=== PATIENT | female | born 1955 | race Caucasian/White ===

== ENCOUNTER → 2016-12-01 | Outpatient (CLI) | payer OTHER ==
[~2016-12-01] VITALS: Ht 157.5 cm; Wt 57.2 kg
[~2016-12-01] MED LIST: ABILIFY 2 MG2 MG PO; ABILIFY 5 MG TAB5 M1 PO; ABILIFY10 MG PO; ABILIFY15 MG PO; ACETAMINOPHEN325 M1 PO; ADVIL100 M2 PO; AMBIEN 10 MG TA10 MG PO; ASPIRIN EC81 M1 PO; ATIVAN0.5 MG PO; ATIVAN1 MG PO; ATORVASTATIN CA40 MG PO; AUGMENTIN 500-1 EACH PO; AUGMENTIN 875875 MG PO; AZITHROMYCIN 2250 MG PO; B-100 COMPLEX1 EAC1 PO; BACLOFEN 10MG T10 MG PO; BONIVA2.5 MG PO; CAL-LAC100 MG PO; CALCIUM 500 +1 EAC5 PO; CATAPRES-TTS 10.1 MG TD; CEFTIN 250 MG250 MG PO; CITRACEL; CITRATE OF MAG296 ML PO; COLACE100 MG PO; CORTISONE99 GM TP; CYMBALTA PO; CYMBALTA30 MG PO; DESYREL100 MG PO; DESYREL50 MG PO; DILAUDID; DILAUDID 2 MG TA2 MG PO; DILAUDID 4 MG TA4 M1 PO; DILAUDID 4 MG TA4 MG PO; DILAUDID4 MG PO; DOXYCYCLINE 10100 MG PO; DUONEB 2.5-0.5 M3 ML INH; EFFIENT10 MG PO; FAMOTIDINE20 MG PO; FISH OIL 1,0001 EAC9 PO; FLONASE 0.05%50 MCG NASAL; FLOVENT HFA 1110 MCG INH; GLYCOLAX POWDER17 G1 PO; HONEY PO; IBUPROFEN 200200 M1 PO; IBUPROFEN 600600 M1 PO; IMDUR 30 MG TAB30 M1 PO; INTRATHECAL MED; K-DUR10 MEQ PO; KEFLEX250 MG PO; KLOR-CON 1010 MEQ PO; LASIX 40 MG TAB40 M2 PO; LEVAQUIN 500 M500 M2 PO; LEVAQUIN 500 M500 M3 PO; LEVAQUIN 500 M500 MG PO; LEVAQUIN 750 M750 MG PO; LEVOFLOXACIN750 MG PO; LEVOTHROID150 MC1 PO; LEVOTHYROXIN0.025 M1 PO; LEVOTHYROXIN0.125 M1 PO; LEXAPRO 10 MG T10 M1 PO; LEXAPRO 10 MG T10 MG PO; LEXAPRO20 MG PO; LIDOCAINE 2%2 %/5 GM MM; LIORESAL 10 MG10 MG PO; LIPITOR40 MG PO; LORAZEPAM 0.50.5 MG PO; LORAZEPAM 1 MG T1 M1 PO; LUNESTA3 MG PO; LYRICA 50 MG50 MG PO; LYRICA 75 MG CA75 MG PO; LYRICA100 MG PO; METOPROLOL SUCC25 M1 PO; MIRALAX17 GM PO; MOBIC7.5 MG PO; MUCINEX TA600 MG/TA1 PO; MUCINEX600 MG PO; MUCUS RELIEF600 MG PO; MULTIVITAMINS PO; MULTIVITAMINS1 EAC7 PO; NAMENDA 5 MG TAB5 M1 PO; NASACORT AQ16.5 GM NASAL; NASACORT10.8 ML NASAL; NICOTINE TRANSDE7 MG TD; NITROGLYCERIN0.4 MG SUBLING; NITROQUICK0.4 MG SL; NORVASC 2.5 MG2.5 M1 PO; OSTEOBIFLEX PO; PAIN PUMP INTRATHECA; PAMELOR10 MG PO; POTASSIUM CHLO10 MEQ PO; POTASSIUM CHLORIDE PO; PREDNISONE 10 M10 M1 PO; PREDNISONE 10 M10 MG PO; PREDNISONE 20 M20 MG PO; PREDNISONE 5 MG5 M1 PO; PREDNISONE50 MG PO; PREMARIN0.3 MG PO; PROVENTIL IN; RECLAST 55 MG/100 M IV; RESTORIL15 MG PO; ROBITUSSIN15 MG/5 M1 PO; SENOKOT-S1 TA1 GT; SENOKOT-S1 TA1 PO; SIMVASTATIN20 MG PO; SIMVASTATIN40 MG PO; SONATA10 MG PO; SONATA5 M1 PO; SONATA5 MG PO; SYNTHROID125 MCG PO; SYNTHROID150 MCG PO; TEGRETOL XR100 MG PO; TESSALON PERLE100 M1 PO; TESSALON PERLE100 MG PO; TOPROL XL25 MG PO; TOPROL XL50 MG PO; TRILEPTAL150 MG PO; TYLENOL EXTRA500 MG PO; VENTOLIN HFA 1818 GM INH; VOLTAREN GEL 1100 G1 TOP; VOLTAREN GEL 1100 G2 TOP; WELLBUTRIN XL150 M1 PO; XOPENEX HF1 UDINHALE IH; XOPENEX HFA15 GM IH; XOPENEX HFA15 GM INH; ZANAFLEX4 MG PO; ZOCOR20 MG PO; ZPAK PO; hydromorphone; hydromorphone INTRATHECA
--- NOTE | ~2016-12-01 | HPC ---
[facility] [address] [address] PAIN MANAGEMENT CONSULTATION Name: ZEYNEP VELASCO KRISTINA Room #: REG Seth Whyte.#: [id number] Admission: 12/01/16 Attend Phys: Tony Huang DO Discharge: Date of : 59 Report #: [id number] THIS REPORT FOR: //name// CC: Jarad Huang PROCEDURE: Right L3-L4 transforaminal epidural injection under fluoroscopy. INDICATIONS: Symptomatic lumbar radiculopathy, status post decompressive laminectomy. The patient has chronic pain syndrome, requiring complex medication management. She has an intrathecal pump in place. She has significant thoracolumbar scoliosis. She had a right L3-L4 transforaminal epidural injection in May, with a greater than 60% improvement of baseline pain for quite some time. She has ongoing issues with the back, I think scoliosis may be getting worse. She was seen in the back surgery department at . She has a CT myelogram pending. She presents to the pain clinic today for prior transforaminal epidural injection under fluoroscopy. ASSESSMENT: Symptomatic lumbar radiculopathy, status post decompressive laminectomy. The patient with subjective pain score of 6/10. PROCEDURE: Transforaminal lumbar epidural injection under fluoroscopy. PROCEDURE NOTE: After both written and informed consent was obtained including risk of spinal cord damage, infection, increased pain and paralysis, the patient agreed to proceed. The patient was taken to the fluoroscopy suite, placed in a prone position with appropriate abdominal bolstering. After sterile prep with ChloraPrep and sterile drape, a skin wheal with 1% Xylocaine was raised. A 22 gauge 4-1/2 inch epidural Tuohy needle was inserted. From an oblique approach into the posterior-superior aspect of L3-L4 on the right neural foramen with continuous pressure on the glass syringe plunger for loss of resistance. Glass syringe was filled with 2 mL of 0.1 Xylocaine. The glass loss of resistance syringe was removed. A low volume extension tubing was connected, negative aspiration was accomplished for cerebrospinal fluid or blood. 1 mL of Omnipaque was injected which showed spread both within the epidural space and laterally along the nerve root. This was followed with 80 mg of triamcinolone plus 1 mL of 1.5% preservative-free Xylocaine. Needle was partially withdrawn, 0.5 mL of Xylocaine was injected to clear the needle and the needle was removed. The area was cleansed, band-aid was applied. The patient was allowed to ambulate to the recovery room, discharged in good and stable condition. <ELECTRONICALLY SIGNED> By: Tony Huang DO 12/03/16 0824 [id number] [id number] Tony Huang DO /nt
[2016-12-01 12:55] VITALS: BP 115/60
== END | disposition home or self-care (01) ==
LOC: PAIN 07:25
DX: G89.4 Chronic pain syndrome (principal); M54.16 Radiculopathy, lumbar region; F17.200 Nicotine dependence, unspecified, uncomplicated; Z98.890 Other specified postprocedural states

== ENCOUNTER → 2017-03-27 | Outpatient (CLI) | payer OTHER ==
[~2017-03-27] VITALS: Ht 157.5 cm; Wt 55.8 kg
--- NOTE | ~2017-03-27 | HPC ---
[facility] [place] [address] PAIN MANAGEMENT CONSULTATION Name: ZEYNEP VELASCO Room #: REG LUIS Buitrago#: [id number] Admission: 03/27/17 Attend Phys: Tony Huang DO Discharge: Date of : 59 Report #: [id number] THIS REPORT FOR: //name// CC: Jarad Huang The patient is a very pleasant 61-year-old female, long known to the pain clinic, being treated for lumbar radiculopathy status post decompressive laminectomy, neuropathic pain requiring complex medication management. Last seen in the pain clinic 01/16/2017 for intrathecal pump refill. She was having increasing lumbar radicular pain following an aborted CT myelogram at [facility]. I had given her an epidural injection 11/21/2016 for right lumbar radicular symptoms (transforaminal L3-L4) with good efficacy. In the interval between November and January when we saw her, she had the aforementioned aborted EMG. When I saw her last visit, we refilled the ITP and I had ordered a CT myelogram here at [facility]. The patient returns to pain clinic today. She notes that after 7 long weeks, finally the left L4 radicular pain is starting to improve. She was very nervous about repeating the CT myelogram even in different hands. I told I certainly understood her anxiety and given the fact the symptoms are improving, we will simply assume that it was irritation of that nerve root from the irritation of the spinal needle for the attempted CT myelogram and it seems to be resolving. She notes her usual right lumbar radicular pain remains problematic. She notes the intrathecal pump is helpful. Unfortunately, she fell recently suffered trauma to outstretched left wrist. She has pain at the base of the hand on the radial aspect, pain with pressure in the "anatomical snuff box." Given that it has been about 3 weeks now, concerned that this may be a bone bruise or possibly fracture here. We will order x-rays of the left hand/wrist. Otherwise, physical exam is relatively unchanged. The patient is concerned that the new intrathecal pump is actually fairly lose in the pocket and it does move around a fair bit. It is pretty clearly not anchored. I am concerned that she has lost a fair bit of weight. She has some very lax skin over the abdominal wall. I cautioned her about activities that might cause the pump to "flip." This would both make accessing the pump problematic and could cause damage to the intrathecal catheter lead. Today, I have taken the liberty of renewing the patient's breakthrough pain medication, hydromorphone 4 mg 1 tablet up to 4 times a day, limit 120 tablets. I have renewed Lyrica 100 mg 3 times a day, 90 tablets with 2 refills, baclofen 10 mg q. 8 hours, 90 tablets with 2 refills and Voltaren gel topically. Intrathecal pump was addressed, I refilled the pump today with her baseline infusate which contains bupivacaine 20 mg per mL, hydromorphone 20 mg per mL. No changes to the infusate were made. [address] [address] PAIN MANAGEMENT CONSULTATION Name: ZEYNEP VELASCO KRISTINA Room #: REG CLSeth Buitrago#: [id number] Admission: 03/27/17 Attend Phys: Tony Huang, Discharge: Date of : 59 Report #: [id number] PROCEDURE: After written informed consent was obtained, the patient placed in supine position. Skin overlying the pump was cleansed with ChloraPrep. Skin wheal with Xylocaine was raised. Using the [employer] refill kit, the pump was accessed, aspirated residual contents (approximately 3 mL) refilled with 20 mL of new injectate. Frequent aspiration showed easy return of the injectate. When all 20 mL were injected, the needle was removed. The area was cleansed, Band-Aids applied. The pump was reprogrammed to deliver baseline 4.796 mg of hydromorphone and bupivacaine a day. New refill date is 06/10/2017. SHON is 66 months. Discharged in good and stable condition. <ELECTRONICALLY SIGNED> By: Tony Huang DO 04/01/17 0758 1624 0240 Tony Huang DO /nt
[2017-03-27 12:42] VITALS: BP 114/64
== END ==
LOC: PAIN 07:07
DX: M54.16 Radiculopathy, lumbar region (principal); I10 Essential (primary) hypertension; F17.210 Nicotine dependence, cigarettes, uncomplicated

== ENCOUNTER → 2017-06-08 | Outpatient (CLI) | payer OTHER ==
[~2017-06-08] VITALS: Ht 157.5 cm; Wt 56.4 kg
--- NOTE | ~2017-06-08 | HPC ---
[facility] [address] [place] [address] PAIN MANAGEMENT CONSULTATION Name: GIANKAYLENZEYNEP KRISTINA Room #: REG Seth Whyte.#: [id number] Admission: 06/08/17 Attend Phys: Tony Huang DO Discharge: Date of : 59 Report #: [id number] THIS REPORT FOR: //name// CC: Jarad Huang The patient is a very pleasant 61-year-old female, who I have long treated for chronic pain, back and legs. Status post lumbar decompressive laminectomy fusion. Significant thoracolumbar spondylosis and scoliosis, neuropathic pain requiring complex medication management and intrathecal pump management. She returns to pain clinic today. Ostensibly for intrathecal pump refill, which was accomplished today. She is also noting increasing pain and weakness in the right leg. Unfortunately, weakness is increasing to the point that she is getting a little loss of dorsiflexion starting to trip on her right foot. Physical exam today shows fairly significant thoracolumbar scoliosis, markedly antalgic gait with what appears to be increasing weakness in that right leg to dorsiflexion, hip flexion and lower extremity extension. Modestly positive straight leg raise on the right. Diffuse tenderness across the low back. The patient has a pacemaker and hence cannot get an MRI. She notes that prior epidural injection, right transforaminal injection back in November did afford some relief. She is now interested and perhaps moving forward with the surgical intervention if she does have surgically correctable pathology. We had a prolonged visit today discussing concerns regarding further surgery. She has had multiple surgeries. She has dramatic scoliosis. She already has had multiple back surgeries with instrumentation. She has osteoporosis by history. She continues to smoke. She really has not had an excellent surgical candidate; however, given the concern for weakness in that right leg, I have elected to at least order a CT myelogram of the lumbar spine. We will have the patient follow up with Dr. Muñoz. I would like to get his opinion regarding therapeutic surgical options. I did renew the patient's chronic pain medication, she does take p.r.n. hydromorphone 4 mg up to four times a day, prescription for 120 tablets generated, continue Lyrica 100 mg t.i.d., 90 tablets with 2 refills, baclofen 10 mg q.8h. for spasm, 90 tablets with 2 refills and Voltaren Gel to use topically. We reviewed the fact that opiate medications are being used to provide analgesia adequate to support activities of daily living, not attempting to achieve a specific pain score on the 0-10 Visual Analog Scale. The current opiate medications are providing sufficient analgesia to allow the patient to participate in activities of daily living. The patient is not exhibiting any aberrant behavior suggestive of drug diversion. The patient is not having any adverse reactions to medications. The patient is not suffering from daytime [address] [address] PAIN MANAGEMENT CONSULTATION Name: ZEYNEP VELASCO KRISTINA Room #: REG CL Iftikhar#: [id number] Admission: 06/08/17 Attend Phys: Tony Huang DO Discharge: Date of : 59 Report #: [id number] somnolence or mental acuity changes. The patient is managing opiate-induced constipation with appropriate ynau-rah-pwbwkbd agents and dietary considerations. The patient was counseled on concern for caution with operating a motor vehicle while using opiate medications. A physical exam was performed and the patient's functional status was evaluated. All patients with back pain were advised against the bed rest greater than 4 days and were advised to return to normal activities. Pain score assessment was noted and the treatment plan was reviewed with the patient. All current medications, both prescribed and OTC were reviewed and reconciled on the electronic medical record. Tobacco screening was accomplished and smoking cessation was advised when indicated. BMI was noted and diet/exercise modification was recommended for all patients following outside normal parameters. I reviewed with the patient today their responsibilities to safeguard prescription medications, reviewed their responsibility to utilize medications only as prescribed by the physician. They are to seek and receive pain medications only from 1 physician group ( [facility]). They are to use 1 pharmacy and keep the clinic informed if they change pharmacies. Their responsibilities include making followup visits in a timely fashion and to avoid abrupt discontinuation of medication usage. Their responsibilities further include bringing their medications (bottles from the pharmacy with residual pills) to the visit for possible confirmation of pill counts and the patient understands it is their responsibility to submit to random drug screens to ensure both that the medications prescribed are present, and that no other controlled substances are present. All prescriptions provided today were generated electronically. Intrathecal pump management, intrathecal pump refill. PROCEDURE NOTE: After written informed consent was obtained, the patient was placed in supine position. Skin overlying the pump was cleansed with ChloraPrep. Skin wheal with Xylocaine was raised. Using a [employer] refill kit, the pump was accessed, aspirated residual contents and refilled with 20 mL of the new injectate containing hydromorphone 20 mg per mL and bupivacaine 20 mg per mL. Dose was continued at 4.796 mg per day of each substance. New refill date is now 08/22/2017. After installation of the new injectate with frequent aspiration showing easy return of the injectate, needle was removed, the area was cleansed, and Band-Aids applied. Pump was reprogrammed. Discharged in good and stable condition. Order for a CT myelogram lumbar spine was generated. By: [id number] Tony Huang DO /nt
[2017-06-08 12:39] VITALS: BP 110/68
== END | disposition home or self-care (01) ==
LOC: PAIN 06:51
DX: Z45.1 Encounter for adjustment and management of infusion pump (principal); M41.85 Other forms of scoliosis, thoracolumbar region; G62.9 Polyneuropathy, unspecified; M47.895 Other spondylosis, thoracolumbar region

== ENCOUNTER → 2017-08-20 | Outpatient (CLI) | payer OTHER ==
[~2017-08-20] VITALS: Ht 157.5 cm; Wt 55.8 kg
--- NOTE | ~2017-08-20 | HPC ---
[facility] [address] [place] [address] PAIN MANAGEMENT CONSULTATION Name: KRISTAZEYNEP KRISTINA Room #: REG Seth Buitrago#: [id number] Admission: 08/20/17 Attend Phys: Tony Huang DO Discharge: Date of : 59 Report #: [id number] THIS REPORT FOR: //name// CC: Jarad Huang DATE OF SERVICE: 08/20/2017 The patient is a very pleasant 61-year-old female along the pain clinic, being treated for significant thoracolumbar scoliosis and spondylosis status post decompressive laminectomy, chronic pain syndrome requiring high risk complex medication management and intrathecal pump management. She returns to pain clinic today ostensibly for intrathecal pump refill. She also was complaining of a new complaint that being right shoulder pain. Last visit, we talked about getting an MRI of the lumbar spine, though patient prudently points out that she is not desirous of further surgery. She understands that any surgery require instrumentation and she would prefer to try and avoid that if possible. She notes that pain in her right hip and leg remains problematic, but she feels that she is reasonably functional. She uses a cane in her right hand, which she has for years. She does, however, note that for the past couple of months she had increasing pain in the right shoulder, exacerbated with any and all movement. She has struggled some with opiate-induced constipation, she follows up with her GI physician. Tragically, they suggested Movantik, which was not covered by insurance. They suggested Linzess which was not covered by insurance. She is still working with her gastrointestinal doc to help ameliorate these symptoms. The positive note is that she is taking less of her p.r.n. breakthrough medication (hydromorphone 4 mg). I had given her last prescription for 120 tablets on 06/08/2017. She still has a few tablets left we did renew a prescription today. She is using Voltaren gel topically on her knees and started recently on the right shoulder. She notes pain is 6.5 on the VAS. Again, pain in the low back, right hip and now right shoulder. PHYSICAL EXAMINATION: Shows pleasant 61-year-old female, BMI is 22.5 kilograms per meter squared. Remarkable thoracolumbar scoliosis antalgic gait. Vital signs are stable. Right shoulder still has pain with both passive and active range of motion, slight diminished in strength the deltoid and biceps strength. I did take the liberty of ordering x-rays of the right shoulder today, reviewing this notes degenerative changes at right AC joint. [address] [address] PAIN MANAGEMENT CONSULTATION Name: ZEYNEP VELASCO KRISTINA Room #: REG CLSeth Buitrago#: [id number] Admission: 08/20/17 Attend Phys: Tony Huang DO Discharge: Date of : 59 Report #: [id number] ASSESSMENT: Symptomatic right shoulder degenerative joint disease. RECOMMENDATION: 1. We will seek authorization for shoulder injection under fluoroscopy. Continue tramadol p.r.n. 2. Intrathecal pump refill on chronic pain syndrome. 3. Pump refilled today and I increased to 5%, from 4.796 mg of hydromorphone a day to 5.022 mg of hydromorphone a day (with concurrent increase in bupivacaine 4.796 to 5.022 mg a day). PROCEDURE NOTE: Intrathecal pump refill. PROCEDURE: After written informed consent was obtained, the patient placed in supine position. Skin overlying the pump was cleansed with ChloraPrep. Skin wheal with Xylocaine was raised. The pump was accessed using the [employer] refill kit, aspirated of approximately 2.5 mL of injectate. Refilled with 20 mL of new injectate, hydromorphone 20 mg per mL, bupivacaine 20 mg per mL. Again, I did increase the pump 5%. New alarm date is now 10/30/2017. We will plan on seeing patient next week for right shoulder arthrogram and shoulder steroid injection. The patient has ongoing pain in the right shoulder. X-rays show arthritic changes, topical nonsteroidal anti-inflammatory medications not affording adequate relief, she is intolerant of nonsteroidal anti-inflammatory agents. <ELECTRONICALLY SIGNED> By: Tony Huang DO 08/21/17 0657 1545 2154 Tony Huang DO /nt
[2017-08-20 12:35] VITALS: BP 118/73
== END | disposition home or self-care (01) ==
LOC: PAIN 07:06
DX: Z45.1 Encounter for adjustment and management of infusion pump (principal); G89.4 Chronic pain syndrome; M19.011 Primary osteoarthritis, right shoulder; J44.1 Chronic obstructive pulmonary disease with (acute) exacerbation; F41.8 Other specified anxiety disorders; F17.200 Nicotine dependence, unspecified, uncomplicated; Z79.891 Long term (current) use of opiate analgesic; Z98.890 Other specified postprocedural states; Z88.0 Allergy status to penicillin; Z88.6 Allergy status to analgesic agent; Z88.8 Allergy status to other drugs, medicaments and biological substances

== ENCOUNTER → 2017-08-31 | Outpatient (CLI) | payer OTHER ==
[~2017-08-31] VITALS: Ht 160 cm; Wt 56.2 kg
--- NOTE | ~2017-08-31 | HPC ---
[address] [place] [address] PAIN MANAGEMENT CONSULTATION Name: ZEYNEP VELASCO KRISTINA Room #: REG [facility] MMahi.#: [id number] Admission: 08/31/17 Attend Phys: Tony Huang DO Discharge: Date of : 59 Report #: [id number] THIS REPORT FOR: //name// CC: Jarad Huang PROCEDURE: Right shoulder joint injection under fluoroscopy. INDICATION: Symptomatic right shoulder DJD. X-ray shows moderate DJD here. She was seen in the pain clinic on 08/20/2017, who sought authorization for injection. The patient returns to pain clinic noting pain continues to be problematic in that right shoulder, exacerbated with any motion at all. ASSESSMENT: Symptomatic degenerative joint disease, right shoulder. The patient multiple comorbidities including status post lumbar decompressive laminectomy, thoracolumbar scoliosis and spondylosis, chronic pain syndrome requiring intrathecal pump management and complex medication management. PROCEDURE NOTE: Right shoulder joint injection under fluoroscopy. Fluoroscopy time is under 10 seconds. PROCEDURE: After written informed consent was obtained, the patient was taken to the fluoroscopy suite, placed in the supine position. Skin overlying the right shoulder was cleansed with ChloraPrep. Skin wheal with Xylocaine was raised. A 22-gauge stylet needles were placed to contact the proximal expect of the right humerus at the right glenohumeral joint. Negative aspiration was accomplished. A 1 mL of Omnipaque was injected, which showed spread within the joints followed with 40 mg triamcinolone plus 2 mL of 0.5% preservative-free bupivacaine. Needle was removed. The area was cleansed and Band-Aids applied. The patient monitored for an appropriate period of time, discharged in good and stable condition, noting incremental improvement of baseline pain. <ELECTRONICALLY SIGNED> By: Tony Huang DO 09/02/17 0802 1553 2111 Tony Huang DO /nt
[2017-08-31 13:29] VITALS: BP 119/84
== END | disposition home or self-care (01) ==
LOC: PAIN 08-28 07:19
DX: M19.011 Primary osteoarthritis, right shoulder (principal); M41.85 Other forms of scoliosis, thoracolumbar region; M47.895 Other spondylosis, thoracolumbar region; G89.4 Chronic pain syndrome; F17.210 Nicotine dependence, cigarettes, uncomplicated; Z88.0 Allergy status to penicillin; Z98.890 Other specified postprocedural states; Z79.891 Long term (current) use of opiate analgesic; Z88.6 Allergy status to analgesic agent; Z88.5 Allergy status to narcotic agent; Z88.8 Allergy status to other drugs, medicaments and biological substances

== ENCOUNTER → 2017-10-29 | Outpatient (CLI) | payer OTHER ==
[~2017-10-29] VITALS: Ht 157.5 cm; Wt 56.2 kg
--- NOTE | ~2017-10-29 | HPC ---
[facility] [place] [address] [address] [place] [address] PAIN MANAGEMENT CONSULTATION Name: KRISTAZEYNEP KRISTINA Room #: REG Seth MMahi.#: [id number] Admission: 10/29/17 Attend Phys: Tony Huang DO Discharge: Date of : 59 Report #: [id number] THIS REPORT FOR: //name// CC: Jarad Huang The patient is a very pleasant 61-year-old female, she has significant thoracolumbar scoliosis, spondylosis, status post lumbar decompressive laminectomy, requiring high risk complex medication management, neuropathic pain component. She has an intrathecal pump in place, in fact presents to pain clinic today for intrathecal pump refill. We had prior increased 5% in August. I did a right shoulder joint injection under fluoroscopy 08/31/2017. I am pleased to note that the patient reports dramatic improvement, in fact still ongoing improvement of right shoulder pain and range of motion. She does take an appropriate p.r.n. opiate, Dilaudid 4 mg up to 4 times a day. Last prescription 08/20/2017, lasted about 7 weeks. She uses Lyrica 100 mg t.i.d. and Voltaren gel topically. PHYSICAL EXAMINATION: Today is unchanged, pleasant 61-year-old female. Again marked thoracolumbar scoliosis. Her right shoulder pain is better. Vital signs are stable. We reviewed the fact that opiate medications are being used to provide analgesia adequate to support activities of daily living, not attempting to achieve a specific pain score on the 0-10 Visual Analog Scale. The current opiate medications are providing sufficient analgesia to allow the patient to participate in activities of daily living. The patient is not exhibiting any aberrant behavior suggestive of drug diversion. The patient is not having any adverse reactions to medications. The patient is not suffering from daytime somnolence or mental acuity changes. The patient is managing opiate-induced constipation with appropriate tnqb-vrb-epksufr agents and dietary considerations. The patient was counseled on concern for caution with operating a motor vehicle while using opiate medications. A physical exam was performed and the patient's functional status was evaluated. All patients with back pain were advised against the bed rest greater than 4 days and were advised to return to normal activities. Pain score assessment was noted and the treatment plan was reviewed with the patient. All current medications, both prescribed and OTC were reviewed and reconciled on the electronic medical record. Tobacco screening was accomplished and smoking cessation was advised when indicated. BMI was noted and diet/exercise modification was recommended for all patients following outside normal parameters. I reviewed with the patient today their responsibilities to safeguard prescription medications, reviewed their responsibility to utilize medications only as prescribed by the physician. They are to seek and receive pain [address] [address] PAIN MANAGEMENT CONSULTATION Name: KRISTAZEYNEP KRISTINA Room #: REG CLSeth Buitrago#: [id number] Admission: 10/29/17 Attend Phys: Tony Huang DO Discharge: Date of : 59 Report #: [id number] medications only from 1 physician group ( [facility]). They are to use 1 pharmacy and keep the clinic informed if they change pharmacies. Their responsibilities include making followup visits in a timely fashion and to avoid abrupt discontinuation of medication usage. Their responsibilities further include bringing their medications (bottles from the pharmacy with residual pills) to the visit for possible confirmation of pill counts and the patient understands it is their responsibility to submit to random drug screens to ensure both that the medications prescribed are present, and that no other controlled substances are present. All prescriptions provided today were generated electronically. RECOMMENDATIONS: 1. Renew hydromorphone 4 mg up to 4 tablets a day, 120 tablets, this typically last about 6-7 weeks. 2. Continue Lyrica and Voltaren gel, prescriptions renewed. 3. Intrathecal pump refill. PROCEDURE NOTE: After written informed consent was obtained, the patient was placed in supine position. Skin overlying the pump was cleansed with ChloraPrep. Skin wheal with Xylocaine was raised. Using a [employer] refill kit, the pump was accessed, aspirated residual contents (approximately 5 mL). Refilled with new injectate containing hydromorphone 20 mg per mL and bupivacaine 20 mg per mL. Frequent aspiration showed easy return of the injectate. Pump was reprogrammed to deliver ongoing rate of 5.022 mg of both hydromorphone and bupivacaine a day in a simple continuous fashion. The SHON is 59 months. New refill date is 01/08/2018. Needle was removed. The area was cleansed, Band-Aids applied. The patient was monitored for an appropriate period of time, discharged in good and stable condition. <ELECTRONICALLY SIGNED> By: Tony Huang DO 10/30/17 0943 1540 2048 Tony Huang DO /nt
[2017-10-29 12:47] VITALS: BP 141/79
== END | disposition home or self-care (01) ==
LOC: PAIN 06:39
DX: Z45.1 Encounter for adjustment and management of infusion pump (principal); M41.85 Other forms of scoliosis, thoracolumbar region; M47.895 Other spondylosis, thoracolumbar region; J44.1 Chronic obstructive pulmonary disease with (acute) exacerbation; F17.200 Nicotine dependence, unspecified, uncomplicated; Z98.890 Other specified postprocedural states; Z79.891 Long term (current) use of opiate analgesic; Z88.0 Allergy status to penicillin; Z88.6 Allergy status to analgesic agent; Z88.8 Allergy status to other drugs, medicaments and biological substances; Z79.899 Other long term (current) drug therapy

== ENCOUNTER → 2018-01-07 | Outpatient (CLI) | payer OTHER ==
[~2018-01-07] VITALS: Ht 157.5 cm; Wt 57.2 kg
[~2018-01-07] MED LIST changes: +CELECOXIB200 MG PO; -LEVOTHYROXIN0.125 M1 PO; +SYNTHROID112 MC1 PO
--- NOTE | ~2018-01-07 | HPC ---
[facility] [address] [place] [address] PAIN MANAGEMENT CONSULTATION Name: KRISTAZEYNEP KRISTINA Room #: [facility]#: [id number] Admission: 01/07/18 Attend Phys: Tony Huang DO Discharge: Date of : 59 Report #: [id number] THIS REPORT FOR: //name// CC: Jarad Huang DATE OF SERVICE: 01/07/2018 The patient is a very pleasant 62-year-old female typically treated for lumbar radiculopathy status post decompressive laminectomy, significant thoracolumbar scoliosis requiring intrathecal pump management and complex medication management. She ostensibly presents to pain clinic today for intrathecal pump refill. She has an intrathecal pump delivering hydromorphone and bupivacaine at 5.022 mg a day. During our visit today; however, she also complains of a new significant pain in the right low back. Pain is exacerbated with standing, walking and bending. She had had a right L4-L5 transforaminal epidural injection 12/01/2016 with good resolution of her radicular pain. Again, this pain is a different issue, the patient rates the pain as 6-7 on VAS, notes the pain is exacerbated with standing, walking and bending. Again, she does have a remarkable thoracolumbar scoliosis, but presently has point tenderness of the right SI. PHYSICAL EXAMINATION: Shows lower extremity strength is generally symmetric. Grossly positive Jim test and Gaenslen's test on the right. Straight leg raise is negative. Pelvic distraction exacerbates pain in the right SI. The patient continues to smoke and was counseled regarding same. We reviewed the opiate consent to treat contract, last signed 11/06/2016. Positive for prescribed medications. She uses a cane to assist with ambulation. She has not fallen in the last 3 months. Blood pressure shows 134/79, pulse 64, respirations 16. BMI is 23.1 kilograms per meter squared. The patient notes generally medications are providing sufficient analgesia to participate in activities of daily living. She uses hydromorphone single 4 mg tablet, typically once and rarely twice a day. We reviewed the fact that opiate medications are being used to provide analgesia adequate to support activities of daily living, not attempting to achieve a specific pain score on the 0-10 Visual Analog Scale. The current opiate medications are providing sufficient analgesia to allow the patient to participate in activities of daily living. The patient is not exhibiting any aberrant behavior suggestive of drug diversion. The patient is not having any adverse reactions to medications. The patient is not suffering from daytime [address] [address] PAIN MANAGEMENT CONSULTATION Name: ZEYNEP VELASCO Room #: REG [facility] Payton.Emilia.#: [id number] Admission: 01/07/18 Attend Phys: Tony Huang DO Discharge: Date of : 59 Report #: [id number] somnolence or mental acuity changes. The patient is managing opiate-induced constipation with appropriate xiob-dts-lbocivk agents and dietary considerations. The patient was counseled on concern for caution with operating a motor vehicle while using opiate medications. A physical exam was performed and the patient's functional status was evaluated. All patients with back pain were advised against the bed rest greater than 4 days and were advised to return to normal activities. Pain score assessment was noted and the treatment plan was reviewed with the patient. All current medications, both prescribed and OTC were reviewed and reconciled on the electronic medical record. Tobacco screening was accomplished and smoking cessation was advised when indicated. BMI was noted and diet/exercise modification was recommended for all patients following outside normal parameters. I reviewed with the patient today their responsibilities to safeguard prescription medications, reviewed their responsibility to utilize medications only as prescribed by the physician. They are to seek and receive pain medications only from 1 physician group ( [facility]). They are to use 1 pharmacy and keep the clinic informed if they change pharmacies. Their responsibilities include making followup visits in a timely fashion and to avoid abrupt discontinuation of medication usage. Their responsibilities further include bringing their medications (bottles from the pharmacy with residual pills) to the visit for possible confirmation of pill counts and the patient understands it is their responsibility to submit to random drug screens to ensure both that the medications prescribed are present, and that no other controlled substances are present. All prescriptions provided today were generated electronically. ASSESSMENT #1: New diagnosis right sacroiliac joint dysfunction. RECOMMENDATIONS: 1. Physical therapy for core stabilization exercises. 2. We will seek authorization for right fluoroscopic-guided sacroiliac joint injection at next visit. 3. Renew hydromorphone 4 mg 1 tablet up to q.i.d., limit 120 tablets. Typically, this prescription will last several months. ASSESSMENT #2: Intrathecal pump management. PROCEDURE: After written informed consent was obtained, the RN (Gwen العلي RN) used a [employer] refill kit in a sterile fashion to refill the pump. This was done under my supervision. The pump was reprogrammed to deliver baseline of 5.022 mg hydromorphone and bupivacaine a day. [address] [address] PAIN MANAGEMENT CONSULTATION Name: ZEYNEP VELASCO KRISTINA Room #: REG [facility] Iftikhar#: [id number] Admission: 01/07/18 Attend Phys: Tony Huang DO Discharge: Date of : 59 Report #: [id number] New refill date is now 03/19/2018. Discharged in good and stable condition. <ELECTRONICALLY SIGNED> By: Tony Huang DO 01/11/18 0747 [id number] 1808 Tony Huang DO /nt
[2018-01-07 10:43] VITALS: BP 134/79
== END ==
LOC: PAIN 07:05
DX: M53.3 Sacrococcygeal disorders, not elsewhere classified (principal)

== ENCOUNTER → 2018-03-18 | Outpatient (CLI) | payer OTHER ==
[~2018-03-18] VITALS: Ht 157.5 cm; Wt 56.7 kg
--- NOTE | ~2018-03-18 | HPC ---
[facility] [address] [place] [address] PAIN MANAGEMENT CONSULTATION Name: GIANKAYLENZEYNEP KRISTINA Room #: REG [facility] M.Emilia.#: [id number] Admission: 03/18/18 Attend Phys: Tony Huang DO Discharge: Date of : 59 Report #: [id number] THIS REPORT FOR: //name// CC: Jarad Huang The patient is a very pleasant 62-year-old female long known to the pain clinic, typically treated for lumbar radiculopathy, status post decompressive laminectomy, significant thoracolumbar scoliosis and spondylosis. She has an intrathecal pump and requires complex medication management. Intrathecal pump has bupivacaine and hydromorphone (20 mg per mL each) delivering fixed rate of 5.022 mg hydromorphone and bupivacaine a day. She does present to the pain clinic today for intrathecal pump refill, but notes increasing pain in the low back. She notes pain in the right greater than left leg exacerbated with standing and walking too much. Bending forward does seem to exacerbate pain. Last visit, she had some right SI mediated pain. We sought authorization for right SI joint injection under fluoroscopy though this was deferred at the time. Today, she does have ongoing pain, right greater than left SI, but present on both sides. Physical exam does show a pleasant 62-year-old female with significant thoracolumbar scoliosis with tenderness over the SI joints and bilateral, right greater than left. BMI is 22.9 kilograms per meter squared. Blood pressure 109/72, pulse 66 and respirations 16. She has a markedly antalgic gait and uses a cane for balance. Lower extremity strength is generally preserved. Straight leg raise is negative. Functional assessment tool is 33/70. She scores in the moderate risk assessment tool. Last opiate consent to treat contract was 11/06/2016. We reviewed the fact that opiate medications are being used to provide analgesia adequate to support activities of daily living, not attempting to achieve a specific pain score on the 0-10 Visual Analog Scale. The current opiate medications are providing sufficient analgesia to allow the patient to participate in activities of daily living. The patient is not exhibiting any aberrant behavior suggestive of drug diversion. The patient is not having any adverse reactions to medications. The patient is not suffering from daytime somnolence or mental acuity changes. The patient is managing opiate-induced constipation with appropriate vabg-nrl-gmbgitu agents and dietary considerations. The patient was counseled on concern for caution with operating a motor vehicle while using opiate medications. A physical exam was performed and the patient's functional status was evaluated. All patients with back pain were advised against the bed rest greater than 4 days and were advised to return to normal activities. Pain score assessment was noted and the treatment plan was reviewed with the patient. All current medications, both prescribed and OTC were reviewed and reconciled on the electronic medical record. Tobacco [place] [address] PAIN MANAGEMENT CONSULTATION Name: ZEYNEP VELASCO KRISTINA Room #: REG [facility] Buitrago#: [id number] Admission: 03/18/18 Attend Phys: Tony Huang DO Discharge: Date of : 59 Report #: [id number] cessation was advised when indicated. BMI was noted and diet/exercise modification was recommended for all patients following outside normal parameters. I reviewed with the patient today their responsibilities to safeguard prescription medications, reviewed their responsibility to utilize medications only as prescribed by the physician. They are to seek and receive pain medications only from 1 physician group ( [facility]). They are to use 1 pharmacy and keep the clinic informed if they change pharmacies. Their responsibilities include making followup visits in a timely fashion and to avoid abrupt discontinuation of medication usage. Their responsibilities further include bringing their medications (bottles from the pharmacy with residual pills) to the visit for possible confirmation of pill counts and the patient understands it is their responsibility to submit to random drug screens to ensure both that the medications prescribed are present, and that no other controlled substances are present. All prescriptions provided today were generated electronically. ASSESSMENT: 1. Chronic axial back pain, status post lumbar decompressive laminectomy, thoracolumbar scoliosis and spondylosis without myelopathy requiring intrathecal pump and complex medication management. 2. Right greater than left SI mediated pain. RECOMMENDATIONS: 1. Intrathecal pump refill today by myself. 2. We will renew p.r.n. breakthrough pain, hydromorphone 4 mg 1 q. 4-6h., limit 120 tablets. 3. We will seek authorization for bilateral SI joint injection under fluoroscopy at next visit. PROCEDURE NOTE: After written informed consent was obtained, the patient was placed in the supine position. Skin overlying the intrathecal pump was cleansed with ChloraPrep. Skin wheal with Xylocaine was raised. Using a [employer] refill kit, the pump was accessed, aspirated of residual contents, refilled with the new injectate containing 20 mL of hydromorphone and bupivacaine each 20 mg per mL. Frequent aspiration showed easy return. Needle was removed. The area was cleansed and Band-Aids applied. New refill date is 05/28/2018. I did inform the patient that I am leaving the practice. I will plan on seeing her next month for SI joint injection under fluoroscopy indicated for axial back pain and SI mediated pain. If she is doing well, we will have her cancel and follow simply as needed. We will ask Dr. Kal Gabriel to continue management [facility] [address] [place] [address] PAIN MANAGEMENT CONSULTATION Name: ZEYNEP VELASCO Room #: REG [facility] Buitrago#: [id number] Admission: 03/18/18 Attend Phys: Tony Huang DO Discharge: Date of : 59 Report #: [id number] of her intrathecal pump. If his practice is full, we will refer her to Dr. Rober Muñoz. <ELECTRONICALLY SIGNED> By: Tony Huang DO 03/22/18 0824 1519 2153 Tony Huang DO /nt
[2018-03-18 12:40] VITALS: BP 119/72
== END ==
LOC: PAIN 08:17
DX: Z45.1 Encounter for adjustment and management of infusion pump (principal); Z98.890 Other specified postprocedural states; M41.85 Other forms of scoliosis, thoracolumbar region; M47.26 Other spondylosis with radiculopathy, lumbar region; M53.3 Sacrococcygeal disorders, not elsewhere classified; G89.29 Other chronic pain; Z79.899 Other long term (current) drug therapy; F17.200 Nicotine dependence, unspecified, uncomplicated

== ENCOUNTER → 2018-03-29 | Outpatient (CLI) | payer OTHER ==
[~2018-03-29] VITALS: Ht 157.5 cm; Wt 56.5 kg
--- NOTE | ~2018-03-29 | HPC ---
[facility] [address] [place] [address] PAIN MANAGEMENT CONSULTATION Name: KRISTAZEYNEP KRISTINA Room #: REG [facility] M.Emilia.#: [id number] Admission: 03/29/18 Attend Phys: Tony Huang DO Discharge: Date of : 59 Report #: [id number] THIS REPORT FOR: //name// CC: Jarad Huang PROCEDURE: Bilateral SI joint injection under fluoroscopy. INDICATION: SI mediated pain, right greater than left in a patient with chronic thoracolumbar scoliosis, spondylosis, status post lumbar decompressive laminectomy with SI mediated pain. Last seen on 03/18/2018. We sought authorization for said injection. She returns to the pain clinic today. Pain continues to be problematic in the low back, SI and working with physical therapy. We did proceed with bilateral SI joint injection under fluoroscopy. Continue with physical therapy. Follow up as needed for medication and intrathecal pump management. PROCEDURE: Bilateral SI joint injection under fluoroscopy. PROCEDURE NOTE: After written and informed consent was obtained including risk of infection, nerve trauma, increased pain and weakness, the patient wishes to proceed. The patient was taken to the fluoroscopy suite, placed in the prone position. The sacroiliac joint was visualized using the C-arm, turned in an oblique fashion to align the joint. The skin overlying the area was cleansed with ChloraPrep. Skin wheal with Xylocaine was raised. A 22 gauge spinal needle was inserted into the inferior aspect of the joint. A low volume extension tubing was then attached to the needle after the stylet was removed. Negative aspiration was accomplished. A 1 mL of Omnipaque was injected which showed spread within the SI joint. 40 mg triamcinolone plus 2 mL of 0.5% preservative-free bupivacaine was injected into the joint. Needle was removed. Attention was then turned to the contralateral joint which was treated in an identical fashion. After both needles were removed the prep was washed off. Two Band-Aids were applied over the puncture sites. The patient was allowed to ambulate to the recovery room, monitored for an appropriate period of time, discharged in good and stable condition. By: [id number] Tony Huang DO /nt
[2018-03-29 13:41] VITALS: BP 111/81
== END | disposition home or self-care (01) ==
LOC: PAIN 07:12
DX: M53.3 Sacrococcygeal disorders, not elsewhere classified (principal); G89.29 Other chronic pain; M54.5 Low back pain; J44.9 Chronic obstructive pulmonary disease, unspecified; F17.210 Nicotine dependence, cigarettes, uncomplicated; Z88.0 Allergy status to penicillin; Z88.8 Allergy status to other drugs, medicaments and biological substances; Z79.899 Other long term (current) drug therapy; Z98.890 Other specified postprocedural states; Z87.01 Personal history of pneumonia (recurrent)

== ENCOUNTER → 2018-05-21 | Outpatient (CLI) | payer OTHER ==
[~2018-05-21] VITALS: Ht 160 cm; Wt 56.9 kg
--- NOTE | ~2018-05-21 | HPC ---
[facility] [place] [address] PAIN MANAGEMENT CONSULTATION Name: KRISTAZEYNEP KRISTINA Room #: REG [facility] Buitrago#: [id number] Admission: 05/21/18 Attend Phys: Tony Huang DO Discharge: Date of : 59 Report #: [id number] THIS REPORT FOR: //name// CC: Jarad Huang DATE OF SERVICE: 05/21/2018 The patient is a delightful 62-year-old female, well known to the Pain Clinic, being treated for chronic axial back pain, history significant thoracolumbar scoliosis and spondylosis, status post both cervical and decompressive laminectomies. She has chronic pain syndrome requiring complex medication management. To aid in this, she has an intrathecal pump. Currently, delivers hydromorphone 5.022 mg a day and concurrent bupivacaine 5.022 mg a day. The patient returns to Pain Clinic today for intrathecal pump refill and medication management. She had prior been referred to Physical Therapy by myself. She was seen at [facility] from 03/09/2018 through 04/28/2018. PT felt the patient was progressing some degree, though she does have some chronic restrictions. She has used a cane for balance. She was very compliant with PT and continues to do home exercises. She returns to the Pain Clinic today noting pain medications are generally sufficient to provide analgesia enabling her to participate in activities of daily living. She rates her average pain score 6-7 on a VAS. Primary pain is right low back radiating into the right leg and right shoulder, status post a fall last week. She states that she had what sounds like a syncopal event. She fell striking her right shoulder about 2 weeks ago. The symptoms have resolved. She feels stable presently. She uses hydromorphone orally 4 mg tablet 1-4 tablets a day, typically 120 tablets in the last 2 months. She does use Celebrex 200 mg once a day. I started this last month. She does not feel has a great deal of efficacy. I suggest she continue the first 30-day course and then discontinue. If she notes a change in pain, she may consider refilling. Lyrica, she does feel is quite helpful 100 mg t.i.d. and baclofen 10 mg t.i.d. has been helpful as well. Medication list was reconciled today. The patient has dyslipidemia for which she takes atorvastatin, some chronic anxiety for which she takes Cymbalta and lorazepam. Metoprolol for hypertension, Synthroid for chronic hypothyroidism, Lasix for hypertension as well. She uses Abilify along with Cymbalta for chronic anxiety disorders. [address] [address] PAIN MANAGEMENT CONSULTATION Name: ZEYNEP VELASCO KRISTINA Room #: REG [facility] Buitrago#: [id number] Admission: 05/21/18 Attend Phys: Tony Huang DO Discharge: Date of : 59 Report #: [id number] PHYSICAL EXAMINATION: Shows a pleasant 62-year-old female, BMI is 22.2 kg/m2. Vital signs stable as noted in the EMR. Significant thoracolumbar scoliosis. Rises from chair using armrest. Antalgic gait, uses a cane in her right hand, has a stooped posture. Lower extremity strength is diminished, but symmetric. Right leg is perhaps a little weaker than left. She continues to smoke and was counseled regarding same. We reviewed the fact that opiate medications are being used to provide analgesia adequate to support activities of daily living, not attempting to achieve a specific pain score on the 0-10 Visual Analog Scale. The current opiate medications are providing sufficient analgesia to allow the patient to participate in activities of daily living. The patient is not exhibiting any aberrant behavior suggestive of drug diversion. The patient is not having any adverse reactions to medications. The patient is not suffering from daytime somnolence or mental acuity changes. The patient is managing opiate-induced constipation with appropriate hmzm-vyd-badhxcj agents and dietary considerations. The patient was counseled on concern for caution with operating a motor vehicle while using opiate medications. A physical exam was performed and the patient's functional status was evaluated. All patients with back pain were advised against the bed rest greater than 4 days and were advised to return to normal activities. Pain score assessment was noted and the treatment plan was reviewed with the patient. All current medications, both prescribed and OTC were reviewed and reconciled on the electronic medical record. Tobacco screening was accomplished and smoking cessation was advised when indicated. BMI was noted and diet/exercise modification was recommended for all patients following outside normal parameters. I reviewed with the patient today their responsibilities to safeguard prescription medications, reviewed their responsibility to utilize medications only as prescribed by the physician. They are to seek and receive pain medications only from 1 physician group ( [facility]). They are to use 1 pharmacy and keep the clinic informed if they change pharmacies. Their responsibilities include making followup visits in a timely fashion and to avoid abrupt discontinuation of medication usage. Their responsibilities further include bringing their medications (bottles from the pharmacy with residual pills) to the visit for possible confirmation of pill counts and the patient understands it is their responsibility to submit to random drug screens to ensure both that the medications prescribed are present, and that no other controlled substances are present. All prescriptions provided today were generated electronically. ASSESSMENT: Chronic axial back pain, significant thoracolumbar spondylosis and scoliosis, status post lumbar decompressive laminectomy, requiring complex medication management. [facility] [address] [place] [address] PAIN MANAGEMENT CONSULTATION Name: ZEYNEP VELASCO KRISTINA Room #: REG [facility] M..#: [id number] Admission: 05/21/18 Attend Phys: Tony Huang DO Discharge: Date of : 59 Report #: [id number] RECOMMENDATIONS: Renew current medications including baclofen 10 mg t.i.d.; hydromorphone 4 mg 1 tablet up to q. 6 hours, 120 tablets typically last 60 days; Lyrica 100 mg t.i.d. I have taken the liberty of writing for the non-controlled substances for multiple months. Intrathecal pump refill by RN: Pump was accessed in a sterile fashion, aspirated and refilled using a [employer] refill kit with a new injectate containing hydromorphone and bupivacaine 20 mg/mL each. She has a 20 mL intrathecal pump. This was accomplished by nurse Kaitlin. New refill date is now 07/31/2018. SHON is 52 months. We will have her follow up with Dr. Kal Gabriel. Discharged in good and stable condition. <ELECTRONICALLY SIGNED> By: Tony Huang DO 05/24/18 0659 [id number] 2254 Tony Huang, DO /nt
[2018-05-21 12:36] VITALS: BP 122/78
== END | disposition home or self-care (01) ==
LOC: PAIN 06:59
DX: Z45.1 Encounter for adjustment and management of infusion pump (principal); M54.9 Dorsalgia, unspecified; G89.4 Chronic pain syndrome; M47.895 Other spondylosis, thoracolumbar region; M41.85 Other forms of scoliosis, thoracolumbar region; F17.210 Nicotine dependence, cigarettes, uncomplicated; Z98.890 Other specified postprocedural states; Z79.891 Long term (current) use of opiate analgesic; Z88.0 Allergy status to penicillin; Z88.8 Allergy status to other drugs, medicaments and biological substances; Z79.899 Other long term (current) drug therapy

== ENCOUNTER → 2018-09-30 | Outpatient (CLI) | payer OTHER ==
[~2018-09-30] VITALS: Ht 160 cm; Wt 57.5 kg
--- NOTE | ~2018-09-30 | HPC ---
[facility] [address] [place] [address] PAIN MANAGEMENT CONSULTATION Name: ZEYNEP VELASCO Room #: REG [facility] M.R.#: [id number] Admission: 09/30/18 Attend Phys: Kal Gabriel MD Discharge: Date of : 59 Report #: [id number] THIS REPORT FOR: //name// CC: Jarad Gabriel DATE OF SERVICE: 09/30/2018 CHIEF COMPLAINT: Followup visit for refill and reprogramming of intrathecal infusion pump. The patient is here today with her friend. I provided her with management of her intrathecal pump initially placed by Dr. Tony Huang over 7 years ago. She is now on her second intrathecal pump. Her pump contains hydromorphone and bupivacaine, which is adequately controlling her pain. We will refill the intrathecal pump today and a small increase in dose was contemplated, but ultimately we decided to leave it the same. She is doing pretty well. She has even been able to significantly reduce her breakthrough medication of hydromorphone. At last visit, she was provided with 120 tablets and she has used only one a day or so. We will continue to decrease the amount provided to her based upon this favorable response to her intrathecal medicines. PHYSICAL EXAMINATION: Today, she is pleasant, outgoing female. No signs of depression, anxiety over her medication. She has lost substantial weight with a BMI of 22.5. She is to weigh over 300 pounds. Her blood pressure is 110/71, heart rate 69, respirations 14. Pain intensity is scored as 6. This is a good number for her. She fell in the beginning of May, but is now using a cane and has not fallen in the last 3 months. She is on an opioid agreement signed in 2016 and has some risk for addiction, so we will follow her closely and keep a tight eye on her medications. Functional assessment tool is 33/70, not too bad. She continues to smoke and was counseled about the serious medical risks including increases in pain. She denies use of alcohol and she does not use any illicit drugs including marijuana. IMPRESSION: 1. Chronic low back pain, post-laminectomy syndrome with radiculopathy. 2. Management of intrathecal infusion pump with refill and reprogramming session. PROCEDURE: Skin was prepped with ChloraPrep. Skin anesthetized and a 22-gauge non-coring needle advanced into the thecal pump. Old medication removed and discarded. Pump was refilled with a combination of hydromorphone and bupivacaine. Reprogramming session performed leaving her medications at the same dose 5 mg a day of hydromorphone and 5 mg a day of bupivacaine as a continuous infusion. Next pump refill is before 12/08/2018. [address] [address] PAIN MANAGEMENT CONSULTATION Name: ZEYNEP VELASCO KRISTINA Room #: REG LUIS Buitrago#: [id number] Admission: 09/30/18 Attend Phys: Kal Gabriel MD Discharge: Date of : 59 Report #: [id number] I provided her with a prescription under terms of our agreement for hydromorphone 4 mg, #60 tablets 1 tablet b.i.d. She is grateful for the pain relief that she gets and it improves her daily function that allows her to provide from her own cares. She denies significant side effects and understands clearly her important responsibility of managing these medications carefully, they are kept under lock and milligan. Followup visit planned in 2 months. By: [id number] [id number] Kal Gabriel MD /nt
[2018-09-30 13:11] VITALS: BP 110/71
== END | disposition home or self-care (01) ==
LOC: PAIN 06:27
DX: Z45.1 Encounter for adjustment and management of infusion pump (principal); M54.16 Radiculopathy, lumbar region; M96.1 Postlaminectomy syndrome, not elsewhere classified; G89.29 Other chronic pain; J44.1 Chronic obstructive pulmonary disease with (acute) exacerbation; F17.210 Nicotine dependence, cigarettes, uncomplicated; Z88.0 Allergy status to penicillin; Z88.8 Allergy status to other drugs, medicaments and biological substances; Z79.899 Other long term (current) drug therapy; Z79.891 Long term (current) use of opiate analgesic; Z98.890 Other specified postprocedural states

== ENCOUNTER → 2018-12-06 | Outpatient (CLI) | payer OTHER ==
[~2018-12-06] VITALS: Ht 160 cm; Wt 57.2 kg
--- NOTE | ~2018-12-06 | HPC ---
[facility] [place] [address] PAIN MANAGEMENT CONSULTATION Name: ZEYNEP VELASCO Room #: REG LUIS Whyte.#: [id number] Admission: 12/06/18 Attend Phys: Kal Gabriel MD Discharge: Date of : 59 Report #: [id number] THIS REPORT FOR: //name// CC: Jarad Gabriel DATE OF SERVICE: 12/06/2018 Followup visit for chronic low back pain, post-laminectomy syndrome with radiculopathy. The patient is here today for refill of intrathecal infusion pump. The patient is here today with her son. Appears to be developmentally delayed adult. She is reportedly doing well despite the cold weather. She continues to report excellent pain relief with her intrathecal infusion pump and no significant side effects. In addition to her pump, she utilizes Lyrica 100 mg 3 times a day for neuropathic pain and this is also a very useful medicine for her. On a rare occasion over the course of the 2 months between refills of her intrathecal pump, she developed a sudden onset of pain, which is severe and I allowed her hydromorphone 4 mg as a breakthrough. I provided her with just 20 tablets at her last visit. This was satisfactory. I have agreed to renew this for her again today. I have reviewed her [facility] prescription drug monitoring program. She last received the hydromorphone tablets 4 months ago and 120 tablets. We will provide her with a lesser amount at today's visit. PHYSICAL EXAMINATION: She is pleasant, alert and oriented. Blood pressure 132/85, heart rate 68. She moves independently from sitting to standing position. She has tenderness across the scar in her back. She scores her pain over that scar as a 6. She is a fall risk and uses a cane after she fell approximately 6 months ago. She is cautious about her activities. She is on no blood thinning medications. Denies use of tobacco. She has moderate risk for opioid medication addiction and so we will watch her medications closely with the PDMP. PROCEDURE: Refill and reprogramming. Skin was prepped with ChloraPrep and anesthetized. A 22-gauge non-coring needle advanced into the intrathecal pump. Old medication removed and discarded. Pump refilled with a combination of hydromorphone and bupivacaine. Reprogramming session was performed. Her daily dose on discharge will be 5 mg per day of hydromorphone and 5 mg per day of bupivacaine. [address] [address] PAIN MANAGEMENT CONSULTATION Name: ZEYNEP VELASCO [facility] Room #: REG CLI Iftikhar#: [id number] Admission: 12/06/18 Attend Phys: Kal Gabriel MD Discharge: Date of : 59 Report #: [id number] Next refill is scheduled for approximately 2 months on 02/12/2019. By: 1556 04 Kal Gabriel MD /nt
[2018-12-06 14:29] VITALS: BP 132/85
--- NOTE | 2018-12-06 14:50 | NUR ---
Pain Clinic Assessment: 1. History of Osteoarthritis: HANDS AND HIP History of Rheumatoid Arthritis: Not Applicable 2. Height: 5 ft. 3 in. 160.0 cm. Weight: 126.0 lb. oz. 57.153 kg. Patient's BMI: 22.3 3. Vital Signs: BP: 132/85 Pulse: 65 Resp: 18 Temp: 02 Sat: 97 ECG Mon: 4. Pain Intensity: 6 5. Fall Risk: Dizziness: N Needs help standing or walking: N Fallen in the last 3 months: N Fall risk comments: USES CANE, FELL BEGINING OF MAY 21. Patient on Blood Thinner: None 7. History of Hypertension: Y 8. Opioid Therapy greater than 6 weeks: Y Opiate Contract Signed: 11/06/16 9. Risk Assessment Tool Provided: 4-mod 10. Functional Assessment Tool: 11. Recreational Drug Use: Never Drug Type: Tobacco Use: Current Every Day Smoker Tobacco Type: Amount or Packs/day: How Many Years: Alcohol Use: No Frequency: Quant:
== END | disposition home or self-care (01) ==
LOC: PAIN 07:19
DX: Z45.1 Encounter for adjustment and management of infusion pump (principal); M54.16 Radiculopathy, lumbar region; G89.29 Other chronic pain; M96.1 Postlaminectomy syndrome, not elsewhere classified; F17.200 Nicotine dependence, unspecified, uncomplicated; Z88.0 Allergy status to penicillin; Z88.8 Allergy status to other drugs, medicaments and biological substances; Z79.899 Other long term (current) drug therapy; Z98.890 Other specified postprocedural states

== ENCOUNTER → 2019-02-10 | Outpatient (CLI) | payer OTHER ==
[~2019-02-10] VITALS: Ht 160 cm; Wt 57.2 kg
--- NOTE | ~2019-02-10 | HPC ---
[facility] [address] [place] [address] PAIN MANAGEMENT CONSULTATION Name: ZEYNEP VELASCO KRISTINA Room #: REG LUIS Whyte.#: [id number] Admission: 02/10/19 ������������������ Attend Phys: Kal Gabriel MD Discharge: ������������������ Date of : 59 Report #: [id number] THIS REPORT FOR: //name// CC: Jarad Gabriel DATE OF SERVICE: 02/10/2019 Followup visit for management of intrathecal infusion pump. The patient returns to the Pain Clinic today for refill of her intrathecal infusion pump. She has hydromorphone and bupivacaine infusing. She is doing well, feels that her infusion has helped significantly with her chronic pain. No adjustment in dose will be required. PQRS review is completed at today's visit. She has osteoarthritis of the hands and hip. She scores her pain on a daily basis as 7/10, but does says this was a smile and laugh. She says she manages her pain well. She is not a fall risk, but she is using a cane that has helped. She had a fall in the beginning of 05/2018. She is on no blood thinners. She is on medication for hypertension provided by her primary care physician and all of her oral medications were reviewed and reconciled during her visit today. We do provide some pain medication for her, Lyrica 100 mg 3 times daily, which she tolerates well. Last prescription for that was given in November. She also received a small prescription for hydromorphone for breakthrough medication only, 20 tablets were provided on 12/06/2018 and she has not requesting another prescription for that breakthrough medication. She has signed an opioid agreement. She is at [id number] risk for addiction. We will monitor use of the small amount of medication carefully. She smokes half pack of cigarettes a day, was counseled. PHYSICAL EXAMINATION: She is a really pleasant, outgoing 63-year-old. Blood pressure 114/73, heart rate 63, respirations 14, 5 feet 3 inches, 126 pounds, BMI 22.3. IMPRESSION: Chronic intractable pain with post-laminectomy syndrome. Lumbar radiculopathy. PLAN: Refill and programming of intrathecal infusion pump. With the assistance of Elaine Guy RN, skin was prepped and a 22-gauge non-coring needle advanced into the pump. Old medication removed and discarded by protocol. Pump refilled then with her usual medication bupivacaine and hydromorphone. Reprogramming session was performed. A copy provided to the patient. Her discharge dose is hydromorphone 5.0, bupivacaine 5.0 per day. She will be back in about 3 [place] [address] PAIN MANAGEMENT CONSULTATION Name: ZEYNEP VELASCO KRISTINA Room #: REG LUIS Buitrago#: [id number] Admission: 02/10/19 ������������������ Attend Phys: Kal Gabriel MD Discharge: ������������������ Date of : 59 Report #: [id number] No new oral medications provided. ��������������������������������������������� ���������������������������������������� By: ��������������������������������������������� 1626 [id number] Kal Gabriel MD /lianna
[2019-02-10 14:36] VITALS: BP 114/73
--- NOTE | 2019-02-10 14:45 | NUR ---
Pain Clinic Assessment: 1. History of Osteoarthritis: HANDS AND HIP History of Rheumatoid Arthritis: Not Applicable 2. Height: 5 ft. 3 in. 160.0 cm. Weight: 126.0 lb. oz. 57.153 kg. Patient's BMI: 22.3 3. Vital Signs: BP: 114/73 Pulse: 63 Resp: 14 Temp: 02 Sat: 97 ECG Mon: 4. Pain Intensity: 7 5. Fall Risk: Dizziness: N Needs help standing or walking: N Fallen in the last 3 months: N Fall risk comments: USES CANE, FELL BEGINING OF MAY 21. Patient on Blood Thinner: None 7. History of Hypertension: Y 8. Opioid Therapy greater than 6 weeks: Y Opiate Contract Signed: 11/06/16 9. Risk Assessment Tool Provided: 4-mod 10. Functional Assessment Tool: 11. Recreational Drug Use: Never Drug Type: Tobacco Use: Current Every Day Smoker Tobacco Type: Cigarettes Amount or Packs/day: 1/2 PACK How Many Years: Alcohol Use: No Frequency: Quant:
== END | disposition home or self-care (01) ==
LOC: PAIN 07:05
DX: Z45.1 Encounter for adjustment and management of infusion pump (principal); M96.1 Postlaminectomy syndrome, not elsewhere classified; G89.29 Other chronic pain; M54.16 Radiculopathy, lumbar region; F17.210 Nicotine dependence, cigarettes, uncomplicated; J44.1 Chronic obstructive pulmonary disease with (acute) exacerbation; Z88.0 Allergy status to penicillin; Z88.6 Allergy status to analgesic agent; Z88.8 Allergy status to other drugs, medicaments and biological substances; Z79.899 Other long term (current) drug therapy; Z98.890 Other specified postprocedural states

== ENCOUNTER → 2019-04-18 | Outpatient (CLI) | payer OTHER ==
[~2019-04-18] VITALS: Ht 157.5 cm; Wt 55.9 kg
[2019-04-18 12:47] VITALS: BP 133/72
--- NOTE | 2019-04-18 12:51 | NUR ---
Pain Clinic Assessment: 1. History of Osteoarthritis: HANDS AND HIP History of Rheumatoid Arthritis: Not Applicable 2. Height: 5 ft. 2 in. 157.5 cm. Weight: 123.3 lb. oz. 55.928 kg. Patient's BMI: 22.5 3. Vital Signs: BP: 133/72 Pulse: 61 Resp: 16 Temp: 02 Sat: 100 ECG Mon: 4. Pain Intensity: 6-7 5. Fall Risk: Dizziness: N Needs help standing or walking: N Fallen in the last 3 months: N Fall risk comments: USES CANE, FELL BEGINING OF MAY 21. Patient on Blood Thinner: None 7. History of Hypertension: Y 8. Opioid Therapy greater than 6 weeks: Y Opiate Contract Signed: 11/06/16 9. Risk Assessment Tool Provided: 4-mod 10. Functional Assessment Tool: 11. Recreational Drug Use: Never Drug Type: Tobacco Use: Current Every Day Smoker Tobacco Type: Cigarettes Amount or Packs/day: 1/2 PACK How Many Years: Alcohol Use: No Frequency: Quant:
--- NOTE | 2019-05-17 17:25 | HPC ---
[facility] [address] [place] [address] PAIN MANAGEMENT CONSULTATION Name: ZEYNEP VELASCO KRISTINA Room #: REG [facility] M.R.#: [id number] Admission: 04/18/19 ������������������ Attend Phys: Kal Gabriel MD Discharge: ������������������ Date of : 59 Report #: [id number] THIS REPORT FOR: //name// CC: Jarad Gabriel DATE OF SERVICE: 04/18/2019 SUBJECTIVE: Followup visit for chronic post-laminectomy syndrome pain with spondylosis and radiculopathy. The patient is here today for a pump refill. Her pump is infusing hydromorphone and bupivacaine. She reports that her pain control is adequate. No adjustment of medication is required. In addition to her intrathecal pump, I have provided her with a small amount of hydromorphone 4 mg, 25 tablets to have on-hand for severe episodes of pain. She uses these rather than go to the Emergency Room. Other medications provided for her include Lyrica 100 mg t.i.d. for neuropathic pain and I have provided a prescription to her for Voltaren gel, applied 4 times daily to her low back. I feel this will be safer for her than oral anti-inflammatory medications. Preauthorization may be required. She reports pain across her low back, into her right buttocks, right groin and right leg. This is radicular and follows distribution of L5-S1 into the leg. It is worse with standing, lifting and changing of positions. It is improved by her medication and by her intrathecal pump. All medications were reviewed and reconciled. She has not fallen in the last 3 months nor is she a fall risk. She continues to smoke and was counseled. She is on an opioid agreement, which was reviewed in detail. PHYSICAL EXAMINATION: GENERAL: Pleasant female. VITAL SIGNS: Blood pressure 133/72, heart rate 61, respirations 16. MUSCULOSKELETAL: Her gait is antalgic. She has tenderness across her low back. She has pain into the right leg and generalized weakness is noted in hip flexion, leg extension. Deep tendon reflexes are diminished bilaterally in lower extremities. IMPRESSION: Post-laminectomy syndrome with radiculopathy. PLAN: 1. She may benefit from an epidural injection. We will schedule this in the future. 2. Continue intrathecal pump, which will be refilled today. 3. Renew medications as described above with further counseling regarding the [address] [address] PAIN MANAGEMENT CONSULTATION Name: ZEYNEP VELASCO KRISTINA Room #: REG CLSeth Buitrago#: [id number] Admission: 04/18/19 ������������������ Attend Phys: Kal Gabriel MD Discharge: ������������������ Date of : 59 Report #: [id number] importance of safeguarding medications, discussion of the opioid crisis in [place]. PROCEDURE: Skin was prepped with ChloraPrep. A 22-gauge non-coring needle advanced in the intrathecal pump. Old medication removed and discarded per protocol. Pump was then refilled with a combination of hydromorphone and bupivacaine. Daily dose will be hydromorphone 5.0, bupivacaine 5.0. Next refill is scheduled for 06/26/2019. Followup visit scheduled in June. ��������������������������������������������� <ELECTRONICALLY SIGNED> ���������������������������������������� By: Kal Gabriel MD ��������������������������������������������� 05/17/19 1725 1714 1433 Kal Gabriel MD /nt
== END | disposition home or self-care (01) ==
LOC: PAIN 06:45
DX: Z45.1 Encounter for adjustment and management of infusion pump (principal); M96.1 Postlaminectomy syndrome, not elsewhere classified; M54.16 Radiculopathy, lumbar region; F17.210 Nicotine dependence, cigarettes, uncomplicated; J44.9 Chronic obstructive pulmonary disease, unspecified; Z88.8 Allergy status to other drugs, medicaments and biological substances; Z79.899 Other long term (current) drug therapy; Z98.890 Other specified postprocedural states

== ENCOUNTER → 2019-06-23 | Outpatient (CLI) | payer OTHER ==
[~2019-06-23] VITALS: Ht 157.5 cm; Wt 56.5 kg
[~2019-06-23] MED LIST changes: -ATORVASTATIN CA40 MG PO
[2019-06-23 10:56] VITALS: BP 115/59
--- NOTE | 2019-06-23 11:47 | NUR ---
Pain Clinic Assessment: 1. History of Osteoarthritis: HANDS AND HIP History of Rheumatoid Arthritis: Not Applicable 2. Height: 5 ft. 2 in. 157.5 cm. Weight: 124.5 lb. oz. 56.473 kg. Patient's BMI: 22.8 3. Vital Signs: BP: 115/59 Pulse: 65 Resp: 16 Temp: 02 Sat: 99 ECG Mon: 4. Pain Intensity: 7 5. Fall Risk: Dizziness: N Needs help standing or walking: N Fallen in the last 3 months: N Fall risk comments: USES CANE, FELL BEGINING OF MAY 21. Patient on Blood Thinner: None 7. History of Hypertension: Y 8. Opioid Therapy greater than 6 weeks: Y Opiate Contract Signed: 11/06/16 9. Risk Assessment Tool Provided: 4-mod 10. Functional Assessment Tool: 11. Recreational Drug Use: Never Drug Type: Tobacco Use: Current Every Day Smoker Tobacco Type: Cigarettes Amount or Packs/day: 1/2 ppd How Many Years: Alcohol Use: No Frequency: Quant:
--- NOTE | 2019-06-30 16:33 | HPC ---
[facility] [place] [address] [address] [place] [address] PAIN MANAGEMENT CONSULTATION Name: ZEYNEP VELASCO Room #: REG [facility] M.R.#: [id number] Admission: 06/23/19 Attend Phys: Kal Gabriel MD Discharge: Date of : 59 Report #: [id number] THIS REPORT FOR: //name// CC: Jarad Gabriel DATE OF SERVICE: 06/23/2019 Followup visit for post-laminectomy syndrome with radiculopathy managed by intrathecal infusion pump. She is here today for refill. The patient returns to pain clinic for refill of her intrathecal infusion pump. We have talked about possibly providing with an epidural injection, but she never scheduled an appointment for that treatment. She reports that her pain control is fair with her pump. In addition to her intrathecal pump, we have provided her over a long period of time with Lyrica 100 mg t.i.d. and hydromorphone 4 mg, a very small dose now for breakthrough. At one time, she was taking a much higher dose. We were able to drop it fairly dramatically by using the intrathecal pump at an increased dose. PQRS REVIEW: 1. She is positive for diffuse osteoarthritis of hands and hips. 2. BMI is 22.8. 3. Blood pressure 115/59, heart rate 65, O2 sat 99. 4. Pain intensity is 7/10. 5. She is a fall risk. She began using a cane because she fell in the beginning of May. 6. She is on no blood thinners. 7. She is treated for hypertension and I reviewed all her medications including those for treatment of her blood pressure. They are on the electronic medical record and there have been no significant changes. 8. She is on an Opioid agreement, which was signed in 2016, the terms of which were reviewed today. She is grateful for the pain relief that the medications provide. She carefully safeguards her medications. She uses it to improve her daily function. There have been no unexpected entries on the prescription drug monitoring information and we performed periodic drug screens at my discretion. 9. Her risk assessment tool is 4/10 suggesting some moderate risk of addiction, so we will carefully monitor her medication. 10. Functional assessment tool is 33/70 or moderate. 11. She denies use of alcohol, but continues to smoke one-half per day and is counseled. We discussed [id number] as a way to start pursuing opportunities to quit the use of this serious drug. PROCEDURE: Refill and reprogramming intrathecal pump. [address] [address] PAIN MANAGEMENT CONSULTATION Name: ZEYNEP VELASCO KRISTINA Room #: REG CL M.R.#: [id number] Admission: 06/23/19 Attend Phys: Kal Gabriel MD Discharge: Date of : 59 Report #: [id number] DESCRIPTION OF PROCEDURE: Skin was prepped with ChloraPrep and a 22-gauge non-coring needle advanced in the pump. Old medication removed and discarded per protocol. Pump refilled with bupivacaine, hydromorphone and reprogramming session performed. Her daily dose is 5.4 mg of hydromorphone and bupivacaine 5.4 mg. She does not have a PTM device. Her next refill is scheduled before August 25, 2019. Followup visit is scheduled in the pain clinic at that time. I did write her a prescription for hydromorphone for severe breakthrough pain to prevent Emergency Room visit. She was given just 25 tablets to last her for the course of the next 3 months. Lyrica was also prescribed 100 mg t.i.d. <ELECTRONICALLY SIGNED> By: Kal Gabriel MD 06/30/19 1633 1758 0125 Kal Gabriel MD /nt
== END | disposition home or self-care (01) ==
LOC: PAIN 06:55
DX: Z45.1 Encounter for adjustment and management of infusion pump (principal); M54.16 Radiculopathy, lumbar region; M96.1 Postlaminectomy syndrome, not elsewhere classified; G89.29 Other chronic pain; I10 Essential (primary) hypertension; M19.90 Unspecified osteoarthritis, unspecified site; F17.210 Nicotine dependence, cigarettes, uncomplicated; Z79.891 Long term (current) use of opiate analgesic; Z88.0 Allergy status to penicillin; Z88.6 Allergy status to analgesic agent; Z88.8 Allergy status to other drugs, medicaments and biological substances; Z79.899 Other long term (current) drug therapy; Z98.890 Other specified postprocedural states; Z87.01 Personal history of pneumonia (recurrent)

== ENCOUNTER → 2019-08-25 | Outpatient (CLI) | payer OTHER ==
[~2019-08-25] VITALS: Ht 157.5 cm; Wt 57.5 kg
--- NOTE | ~2019-08-25 | HPC ---
[facility] [address] [place] [address] PAIN MANAGEMENT CONSULTATION Name: ZEYNEP VELASCO Room #: REG [facility] M.R.#: [id number] Admission: 08/25/19 Attend Phys: Kal Gabriel MD Discharge: Date of : 59 Report #: [id number] THIS REPORT FOR: //name// CC: Jarad Gabriel DATE OF SERVICE: 08/25/2019 The patient returns to clinic today for refill of her intrathecal infusion pump. She has chronic back pain and radiculopathy. She has severe thoracolumbar scoliosis and has received a number of different treatments including injection therapies. Dr. Tony Huang placed her pump years ago. She is grateful for the benefits that it provides. She is truly delighted, always upbeat and positive in our clinic. She is here today for renewal of her hydromorphone and bupivacaine. We also provided her with Lyrica 100 mg t.i.d., which has been helpful for neuropathic pain and she is allowed a small amount of hydromorphone 4 mg. She gets 25 tablets about every 3 months and she uses this when the pain is so severe that she might go to the Emergency Room. Instead, it seems to break her pain to the point where she can make it through an episode of severe exacerbation. A PQRS is completed: 1. She has diffuse osteoarthritis involving spine, hips and hands. 2. Her BMI is 23.2. 3. Blood pressure 132/70, heart rate 60. 4. Pain intensity is 7. 5. Fall risk, yes. She uses a cane, fell in the beginning of May. 6. She is not on blood thinners. 7. She is also treated for hypertension by primary care physician and I have reviewed her medication list. 8. She is on an opioid agreement for the small amount of hydromorphone provided. 9. She has completed an opioid risk tool scoring 4, which is considered moderate. 10. Assessment tool shows a score of 33. She manages fairly well with her pain. 11. She denies use of alcohol, but continues to smoke about half pack a day and she was counseled. IMPRESSION: Chronic intractable back pain with severe thoracolumbar scoliosis, spondylosis and diffuse osteoarthritis. PROCEDURE: Refill and reprogram of intrathecal infusion pump. [facility] [address] [place] [address] PAIN MANAGEMENT CONSULTATION Name: ZEYNEP VELASCO KRISTINA Room #: REG CL [place].Emilia.#: [id number] Admission: 08/25/19 Attend Phys: Kal Gabriel MD Discharge: Date of : 59 Report #: [id number] DESCRIPTION OF PROCEDURE: Skin was prepped with ChloraPrep and a 22-gauge non-coring needle advanced into the intrathecal pump. Old medication removed and discarded. Pump was then refilled with 19.5 mL of solution containing bupivacaine 20 mg per mL and hydromorphone 20 mg per mL. Reprogramming session was performed with no change. Daily dose at discharge 5.4 mg of hydromorphone and 5.4 mg of bupivacaine. Next refill is scheduled for 10/27/2019 and her next pump exchange will be in 38 months. Followup visit planned in October. By: 1628 0701 Kal Gabriel MD /nt
[2019-08-25 12:33] VITALS: BP 132/72
--- NOTE | 2019-08-25 12:43 | NUR ---
Pain Clinic Assessment: 1. History of Osteoarthritis: neelima hips and hands History of Rheumatoid Arthritis: Not Applicable 2. Height: 5 ft. 2 in. 157.5 cm. Weight: 126.8 lb. oz. 57.516 kg. Patient's BMI: 23.2 3. Vital Signs: BP: 132/72 Pulse: 60 Resp: 14 Temp: 02 Sat: 100 ECG Mon: 4. Pain Intensity: 7 5. Fall Risk: Dizziness: N Needs help standing or walking: Y Fallen in the last 3 months: N Fall risk comments: USES CANE, FELL BEGINING OF MAY 21. Patient on Blood Thinner: None 7. History of Hypertension: Y 8. Opioid Therapy greater than 6 weeks: Y Opiate Contract Signed: 11/06/16 9. Risk Assessment Tool Provided: 4-mod 10. Functional Assessment Tool: 11. Recreational Drug Use: Never Drug Type: Tobacco Use: Current Every Day Smoker Tobacco Type: Cigarettes Amount or Packs/day: 1/2 ppd How Many Years: 32 Alcohol Use: No Frequency: Quant:
== END | disposition home or self-care (01) ==
LOC: PAIN 06:54
DX: Z45.1 Encounter for adjustment and management of infusion pump (principal); M54.16 Radiculopathy, lumbar region; G89.29 Other chronic pain; M41.85 Other forms of scoliosis, thoracolumbar region; M47.895 Other spondylosis, thoracolumbar region; M19.90 Unspecified osteoarthritis, unspecified site; I10 Essential (primary) hypertension; J44.9 Chronic obstructive pulmonary disease, unspecified; F17.210 Nicotine dependence, cigarettes, uncomplicated; Z79.891 Long term (current) use of opiate analgesic; Z88.0 Allergy status to penicillin; Z88.6 Allergy status to analgesic agent; Z88.8 Allergy status to other drugs, medicaments and biological substances; Z79.899 Other long term (current) drug therapy

== ENCOUNTER → 2019-08-29 | Outpatient (CLI) | payer OTHER | LOC: RAD 13:23 | DX: M76.892 Other specified enthesopathies of left lower limb, excluding foot (principal); M76.891 Other specified enthesopathies of right lower limb, excluding foot ==

== ENCOUNTER → 2019-10-27 | Outpatient (CLI) | payer OTHER ==
[~2019-10-27] VITALS: Ht 157.5 cm; Wt 57.7 kg
--- NOTE | ~2019-10-27 | HPC ---
[facility] [address] [place] [address] PAIN MANAGEMENT CONSULTATION Name: ZEYNEP VELASCO KRISTINA Room #: REG Seth MOnealR.#: [id number] Admission: 10/27/19 Attend Phys: Kal Gabriel MD Discharge: Date of : 59 Report #: [id number] THIS REPORT FOR: //name// CC: Jarad Gabriel DATE OF SERVICE: 10/27/2019 ADDENDUM The patient also complains of severe pain in her right hip, more so than usual. PHYSICAL EXAMINATION: Today, it was noted that there was significant pain with hip flexion and internal rotation. Localized pain over the gluteal region. Mild pain radiating also into the inguinal crease. I have recommended that she see Orthopedic Surgery and she should discuss this further with her primary care physician to [facility] She may need additional imaging to determine whether she is a candidate for hip arthroplasty. I would like an orthopedic surgeon to help make that decision. By: [id number] Kal Gabriel MD /nt
--- NOTE | ~2019-10-27 | HPC ---
[facility] [place] [address] PAIN MANAGEMENT CONSULTATION Name: ZEYNEP VELASCO Room #: REG [facility] M.R.#: [id number] Admission: 10/27/19 Attend Phys: Kal Gabriel MD Discharge: Date of : 59 Report #: [id number] THIS REPORT FOR: //name// CC: ALEK Gbariel DATE OF SERVICE: 10/27/2019 PRIMARY CARE PHYSICIAN: Alek Barboza MD Followup visit for management of intrathecal infusion pump with refill and reprogramming. The patient returns to pain clinic today for refill. She is having some increased pain in her right hip. She has known osteoarthritis in that joint. The pain is more severe that is limiting her mobility. She does not have a recent x-ray. PQRS REVIEW: 1. Positive for diffuse osteoarthritis involving spondylosis, hips, right worse than left and she has arthritis in her hands as well. 2. Height 5 feet 2 inches, weight 127, BMI is 23.3. 3. Vital signs: Blood pressure 120/60, heart rate 65. 4. Pain intensity 6-7/10 5. She is not a fall risk at this time, although she did fall 4 months ago. She is stable on her feet. 6. She is on no blood thinning medications. 7. History of hypertension, currently treated with medication. All medications from her records were reviewed and reconciled. She is on metoprolol. 8. She is on an opioid agreement signed in 2015. 9. She has completed an opioid risk tool and scored 4/10, which is considered at moderate risk and will be monitored appropriately. 10. Functional assessment score is 33/70. 11. She denies use of marijuana, smokes tobacco on a daily basis and denies use of alcohol. She is on an opioid agreement. I have reviewed her medication use on the prescription drug monitoring program information from [facility] There are no unexpected entries. I prescribed all of her opioids. She does have lorazepam prescribed for her by Dr. Roma House. We discussed the benzodiazepine, lorazepam interaction. She does not take it on a regular basis. She is instructed not use anything more than 0.5 mg lorazepam tablets that she has available and no more than 1 per day. She denies any side effects from her oral opioids, is grateful for the [facility] [address] [place] [address] PAIN MANAGEMENT CONSULTATION Name: KRISTAZEYNEP KRISTINA Room #: REG CL M.Emilia.#: [id number] Admission: 10/27/19 Attend Phys: Kal Gabriel MD Discharge: Date of : 59 Report #: [id number] amount of breakthrough medication that it is available to her when the pump is no longer functioning well. I prescribed her with just 20 tablets to be used only for severe breakthrough pain. In addition, I prescribed Lyrica and we will continue that, again with instructions to safeguard both medications carefully. PROCEDURE: Under my direction, the pump was refilled. Skin was prepped with ChloraPrep and 22-gauge non-coring needle advanced in the pump. Old medication removed and discarded per protocol. Pump refilled then with a combination of hydromorphone and bupivacaine and reprogramming session was performed. Next refill is scheduled for 12/26/2019. Her next pump replacement will be required in about 3 years. Her daily dose will be hydromorphone 5.7, bupivacaine 5.7 mg. Prescriptions were ordered electronically. By: [id number] Kal Gabriel MD /nt
[2019-10-27 12:51] VITALS: BP 120/60
--- NOTE | 2019-10-27 13:14 | NUR ---
Pain Clinic Assessment: 1. History of Osteoarthritis: neelima hips and hands RT SHOULDER History of Rheumatoid Arthritis: Not Applicable 2. Height: 5 ft. 2 in. 157.5 cm. Weight: 127.2 lb. oz. 57.697 kg. Patient's BMI: 23.3 3. Vital Signs: BP: 120/60 Pulse: 65 Resp: 16 Temp: 02 Sat: 100 ECG Mon: 4. Pain Intensity: 6-7 5. Fall Risk: Dizziness: N Needs help standing or walking: Y Fallen in the last 3 months: N Fall risk comments: USES CANE, FELL BEGINING OF MAY 21. Patient on Blood Thinner: None 7. History of Hypertension: Y 8. Opioid Therapy greater than 6 weeks: Y Opiate Contract Signed: 11/06/16 9. Risk Assessment Tool Provided: 4-mod 10. Functional Assessment Tool: 11. Recreational Drug Use: Never Drug Type: Tobacco Use: Current Every Day Smoker Tobacco Type: Amount or Packs/day: How Many Years: Alcohol Use: No Frequency: Quant:
== END | disposition home or self-care (01) ==
LOC: PAIN 06:50
DX: Z45.1 Encounter for adjustment and management of infusion pump (principal); M19.90 Unspecified osteoarthritis, unspecified site; M47.899 Other spondylosis, site unspecified; I10 Essential (primary) hypertension; F17.210 Nicotine dependence, cigarettes, uncomplicated; Z79.899 Other long term (current) drug therapy; Z88.1 Allergy status to other antibiotic agents; Z88.0 Allergy status to penicillin; Z88.8 Allergy status to other drugs, medicaments and biological substances

== ENCOUNTER → 2019-12-22 | Outpatient (CLI) | payer OTHER ==
[~2019-12-22] VITALS: Ht 157.5 cm; Wt 59.1 kg
--- NOTE | ~2019-12-22 | HPC ---
[facility] [address] [address] PAIN MANAGEMENT CONSULTATION Name: ZEYNEP VELASCO Room #: REG Seth Whyte.#: [id number] Admission: 12/22/19 Attend Phys: Kal Gabriel MD Discharge: Date of : 59 Report #: [id number] THIS REPORT FOR: cc: Jaard Barboza MD, Mark A. MD Morgan, Richard L. MD ~ THIS REPORT FOR: //name// CC: Jarad Gabriel DATE OF SERVICE: 12/22/2019 REASON FOR VISIT: Followup visit for management and refill of intrathecal infusion pump and renewal of Neurontin. SUBJECTIVE: The patient is here today for refill of her intrathecal infusion pump. She is doing well. No adjustment of medication doses requested. She has an infusion of hydromorphone 5.7 and bupivacaine 5.7 daily. Her pain scores are at tolerable level for her, although they remain fairly high at 6-7/10. PQRS review is completed. She does have some diffuse osteoarthritis involving bilateral hips, hands and shoulders. Her BMI is 23.8, blood pressure 128/75, heart rate 74, respirations 14, pain intensity 6-7/10. She did fall last year and is using a cane, but she has not fallen in the last 3 months. She is not on blood thinners, but she takes antihypertensive medication, which was reviewed. She is on an opioid agreement with our clinic for medication management and is at moderate risk for drug misuse, so we will monitor her carefully. Her prescription drug monitoring program information does not show any unexpected entries. Functional assessment score 49/10. She denies use of alcohol, but continues to smoke and was counseled about the evils of tobacco. IMPRESSION: Chronic back pain with severe thoracolumbar scoliosis, spondylosis and diffuse osteoarthritis. PROCEDURE: Refill reprogramming of intrathecal infusion pump. After informed consent, she was placed in the supine position. Skin was prepped with ChloraPrep and a 22-gauge non-coring needle advanced in the pump. Old medication was removed and discarded per protocol and the pump was refilled with her hydromorphone, bupivacaine mixture. Reprogramming session performed 5.7 mg of each drug provided daily. Her SHON is 34 months and her next refill is scheduled for 02/20/2020. Medications ordered for her today are Lyrica 100 mg t.i.d. and hydromorphone [address] [address] PAIN MANAGEMENT CONSULTATION Name: ZEYNEP VELASCO KRISTINA Room #: REG CLI Iftikhar#: [id number] Admission: 12/22/19 Attend Phys: Kal Gabriel MD Discharge: Date of : 59 Report #: [id number] mg, a small amount for breakthrough medicine to avoid adjustment in intrathecal pump. Followup visit planned in February. By: [id number] Kal Gabriel MD /lianna
[2019-12-22 09:48] VITALS: BP 128/75
--- NOTE | 2019-12-22 10:10 | NUR ---
Pain Clinic Assessment: 1. History of Osteoarthritis: neelima hips and hands RT SHOULDER History of Rheumatoid Arthritis: Not Applicable 2. Height: 5 ft. 2 in. 157.5 cm. Weight: 130.4 lb. oz. 59.149 kg. Patient's BMI: 23.8 3. Vital Signs: BP: 128/75 Pulse: 74 Resp: 14 Temp: 02 Sat: 97 ECG Mon: 4. Pain Intensity: 6-7 5. Fall Risk: Dizziness: N Needs help standing or walking: Y Fallen in the last 3 months: N Fall risk comments: USES CANE, FELL BEGINING OF MAY 21. Patient on Blood Thinner: None 7. History of Hypertension: Y 8. Opioid Therapy greater than 6 weeks: Y Opiate Contract Signed: 11/06/16 9. Risk Assessment Tool Provided: 4-mod 10. Functional Assessment Tool: 11. Recreational Drug Use: Never Drug Type: Tobacco Use: Current Every Day Smoker Tobacco Type: Cigarettes Amount or Packs/day: < 1/2 PACK How Many Years: Alcohol Use: No Frequency: Quant:
== END | disposition home or self-care (01) ==
LOC: PAIN 06:54
DX: Z45.1 Encounter for adjustment and management of infusion pump (principal); M54.9 Dorsalgia, unspecified; G89.29 Other chronic pain; M41.85 Other forms of scoliosis, thoracolumbar region; M47.895 Other spondylosis, thoracolumbar region; M19.90 Unspecified osteoarthritis, unspecified site; J44.9 Chronic obstructive pulmonary disease, unspecified; F17.210 Nicotine dependence, cigarettes, uncomplicated; Z98.890 Other specified postprocedural states; Z88.0 Allergy status to penicillin; Z88.8 Allergy status to other drugs, medicaments and biological substances; Z79.899 Other long term (current) drug therapy

== ENCOUNTER → 2020-02-16 | Outpatient (CLI) | payer OTHER ==
[~2020-02-16] VITALS: Ht 157.5 cm; Wt 58.2 kg
--- NOTE | ~2020-02-16 | HPC ---
[facility] [place] [address] PAIN MANAGEMENT CONSULTATION Name: ZEYNEP VELASCO Room #: REG PAULINESeth Whyte.#: [id number] Admission: 02/16/20 Attend Phys: Kal Gabriel MD Discharge: Date of : 59 Report #: [id number] THIS REPORT FOR: cc: Jarad Barboza MD, Mark A. MD Morgan, Richard L. MD ~ CC: Jarad Gabriel DATE OF SERVICE: 02/16/2020 Followup visit to manage her intrathecal infusion pump and renewal of oral medications for treatment of intractable pain. The patient is here today for renewal of her intrathecal medications. She has chronic severe lumbosacral and thoracic pain related to scoliosis, spondylosis, and she also has a terrible arthritis involving her hips, hands and shoulders. She is grateful for the pain relief that she receives from her intrathecal pump providing hydromorphone and bupivacaine on a continuous basis. I have also over the years, allowed her to take a small amount of breakthrough oral opioid medication under terms of written agreement. 4 mg of hydromorphone, 25 tablets is provided about every 30-60 days. She uses it carefully and safeguards it to make sure that it does not leave her. In addition, she is using Lyrica and she reports that 100 mg taken 3 times a day helps with some of her pain. Although this is generally for neuropathic pain, it seems to be helpful, also for her mechanical and spondylitic pain. She completed a PQRS review today. Her pain is in her shoulders, hips, bilateral hands and she has osteoarthritis. Her BMI is stable at 23.4. Vital signs: Blood pressure 108/72, heart rate 73, respirations 16, O2 sat 97, pain intensity is 7/10. She has not fallen, but has been using a cane intermittently for stability when her pain is severe. She is on no blood thinners, but is treated by her primary care physician, Dr. Barboza for hypertension. All medications were reviewed and reconciled. She has an opioid agreement on her chart. We reviewed the terms of that agreement and I have also checked her use of medication on the prescription drug monitoring program information and there are no unexpected entries. Urine drug screens were performed periodically at my discretion. She does have a bit higher risk of a score of 4 on the opioid risk tool, which is considered moderate. We will keep a close eye on her medicines. She denies use of alcohol, but she does smoke about half pack a day and has done so for 35 years. She was counseled particularly in this era of respiratory illnesses and concerns about the COVID-19 virus[address] [address] PAIN MANAGEMENT CONSULTATION Name: ZEYNEP VELASCO KRISTINA Room #: REG Seth M.Emilia.#: [id number] Admission: 02/16/20 Attend Phys: Kal Gabriel MD Discharge: Date of : 59 Report #: [id number] IMPRESSION: Chronic intractable pain with spondylosis, scoliosis, and osteoarthritis. PROCEDURE: Refill reprogramming intrathecal infusion pump. Skin was prepped with ChloraPrep. A 22-gauge non-coring needle advanced in the pump. Old medication removed and discarded. Pump was refilled then with a combination of bupivacaine and hydromorphone and reprogramming session performed. She will be discharged on the same dose of 5.7 mg of hydromorphone, 5.7 mg of bupivacaine per day. Continuous infusion without PTM. Followup visit scheduled in about 2 months. I did prescribe hydromorphone for her #25 tablets and they were sent electronically. Followup visit planned in April. By: [id number] Kal Gabriel MD /nt
[2020-02-16 10:54] VITALS: BP 108/72
--- NOTE | 2020-02-16 11:01 | NUR ---
Pain Clinic Assessment: 1. History of Osteoarthritis: neelima hips and hands RT SHOULDER History of Rheumatoid Arthritis: Not Applicable 2. Height: 5 ft. 2 in. 157.5 cm. Weight: 128.2 lb. oz. 58.151 kg. Patient's BMI: 23.4 3. Vital Signs: BP: 108/72 Pulse: 73 Resp: 16 Temp: 02 Sat: 97 ECG Mon: 4. Pain Intensity: 6-7 5. Fall Risk: Dizziness: N Needs help standing or walking: Y Fallen in the last 3 months: N Fall risk comments: USES CANE, FELL BEGINING OF MAY 21. Patient on Blood Thinner: None 7. History of Hypertension: Y 8. Opioid Therapy greater than 6 weeks: Y Opiate Contract Signed: 11/06/16 9. Risk Assessment Tool Provided: 4-mod 10. Functional Assessment Tool: 11. Recreational Drug Use: Never Drug Type: Tobacco Use: Current Every Day Smoker Tobacco Type: Cigarettes Amount or Packs/day: 1/2 How Many Years: 25 Alcohol Use: No Frequency: Quant:
== END | disposition home or self-care (01) ==
LOC: PAIN 06:49
DX: Z45.1 Encounter for adjustment and management of infusion pump (principal); G89.29 Other chronic pain; M47.897 Other spondylosis, lumbosacral region; M41.87 Other forms of scoliosis, lumbosacral region; F17.210 Nicotine dependence, cigarettes, uncomplicated; Z98.890 Other specified postprocedural states; Z79.899 Other long term (current) drug therapy; Z79.891 Long term (current) use of opiate analgesic; Z88.0 Allergy status to penicillin; Z88.8 Allergy status to other drugs, medicaments and biological substances

== ENCOUNTER → 2020-04-12 | Outpatient (CLI) | payer OTHER ==
[~2020-04-12] VITALS: Ht 157.5 cm; Wt 59.7 kg
--- NOTE | ~2020-04-12 | HPC ---
[facility] [place] [address] PAIN MANAGEMENT CONSULTATION Name: ZEYNEP VELASCO Room #: REG [facility] M.Emilia.#: [id number] Admission: 04/12/20 Attend Phys: Kal Gabriel MD Discharge: Date of : 59 Report #: [id number] THIS REPORT FOR: cc: Jarad Barboza MD, Mark A. MD Morgan, Richard L. MD ~ CC: Jarad Gabriel DATE OF SERVICE: 04/12/2020 Followup visit for management of intrathecal infusion pump and refill. The patient returns to pain clinic today and I am refilling her intrathecal infusion pump for her. She receives combination of hydromorphone and bupivacaine. Her pump was placed many years ago by Dr. Tony Huang. I have assumed care of that pump. She complains of her ongoing pain in her low back. Pain radiates into her legs. She also has pain now in her shoulders and a variety of arthritides including hands, shoulders, hips and spine. She is grateful for the pain relief that she receives from her intrathecal pump and remains as active as possible. We have talked about the importance of safely exercising and remaining physically active including some range of motion exercises for her shoulder. She expresses understanding of this and has also been encouraged to do so by her brother who has similar problems. PQRS is completed. She has osteoarthritis of multiple joints as described. Her BMI is stable at 24.1. Her blood pressure 103/60, heart rate 62, respirations 14, pain intensity is at 6/10. She has been using a cane periodically because of falls. She denies use of blood thinning medications, but is treated by her primary care physician for hypertension. She completed an opioid agreement and also has completed an opioid risk tool, which scores at moderate for addiction. We will monitor her through the prescription drug monitoring program information and there are no unexpected entries and she uses medicines only sparingly. Urine drug screens were performed at my discretion. Her functional assessment score is 23. She denies use of alcohol, but continues to smoke on a daily basis and was counseled. IMPRESSION: 1. Chronic intractable pain with multiple pain generators including thoracolumbar spondylosis and scoliosis, diffuse osteoarthritis. 2. Management of intrathecal infusion pump with refill and reprogramming. PROCEDURE: After informed consent, the skin was prepped with ChloraPrep. A [address] [address] PAIN MANAGEMENT CONSULTATION Name: ZEYNEP VELASCO KRISTINA Room #: REG CLSeth Buitrago#: [id number] Admission: 04/12/20 Attend Phys: Kal Gabriel MD Discharge: Date of : 59 Report #: [id number] 22-gauge non-coring needle advanced in pump. Old medication removed and discarded. Pump was refilled then with a combination of hydromorphone and bupivacaine. Reprogramming session was performed. Copy of the information was provided to the patient. Refill scheduled for short of 3 months. I did send in electronically her prescription for hydrocodone. By: [id number] Kal Gabriel MD /nt
[2020-04-12 10:25] VITALS: BP 103/60
--- NOTE | 2020-04-12 10:36 | NUR ---
Pain Clinic Assessment: 1. History of Osteoarthritis: neelima hips and hands RT SHOULDER History of Rheumatoid Arthritis: Not Applicable 2. Height: 5 ft. 2 in. 157.5 cm. Weight: 131.6 lb. oz. 59.693 kg. Patient's BMI: 24.1 3. Vital Signs: BP: 103/60 Pulse: 62 Resp: 14 Temp: 02 Sat: 98 ECG Mon: 4. Pain Intensity: 6 5. Fall Risk: Dizziness: N Needs help standing or walking: Y Fallen in the last 3 months: N Fall risk comments: USES CANE, FELL BEGINING OF MAY 21. Patient on Blood Thinner: None 7. History of Hypertension: Y 8. Opioid Therapy greater than 6 weeks: Y Opiate Contract Signed: 11/06/16 9. Risk Assessment Tool Provided: 4-mod 10. Functional Assessment Tool: 11. Recreational Drug Use: Never Drug Type: Tobacco Use: Current Every Day Smoker Tobacco Type: Amount or Packs/day: How Many Years: Alcohol Use: No Frequency: Quant:
== END | disposition home or self-care (01) ==
LOC: PAIN 06:48
DX: Z45.1 Encounter for adjustment and management of infusion pump (principal); M47.895 Other spondylosis, thoracolumbar region; M41.85 Other forms of scoliosis, thoracolumbar region; J44.9 Chronic obstructive pulmonary disease, unspecified; M19.90 Unspecified osteoarthritis, unspecified site; F17.210 Nicotine dependence, cigarettes, uncomplicated; Z98.890 Other specified postprocedural states; Z79.899 Other long term (current) drug therapy; Z79.891 Long term (current) use of opiate analgesic; Z88.0 Allergy status to penicillin

== ENCOUNTER → 2020-06-07 | Outpatient (CLI) | payer OTHER ==
[~2020-06-07] VITALS: Ht 157.5 cm; Wt 61.1 kg
--- NOTE | ~2020-06-07 | HPC ---
[facility] [address] [address] PAIN MANAGEMENT CONSULTATION Name: ZEYNEP VELASCO Room #: REG [facility] M.Emilia.#: [id number] Admission: 06/07/20 Attend Phys: Kal Gabriel MD Discharge: Date of : 59 Report #: [id number] THIS REPORT FOR: cc: Jarad Barboza MD, Mark A. MD Morgan, Richard L. MD ~ CC: Jarad Gabriel DATE OF SERVICE: 06/07/2020 Followup visit for management of intrathecal infusion pump and treatment of chronic back pain. The patient returns to clinic today for her routine refill of intrathecal infusion pump. She was last seen on 04/12/2020. There have been no significant changes in her health history since that visit. She has ongoing pain that continues into her legs. She did have one fall. She lost her balance. She has increasing instability, I think due to her progressive scoliosis. Despite walking with a walker, she still has some risks when she transfers from place to place. We talked about the importance of remaining active and she has taken that to heart. She continues to walk on a daily basis. This has kept her strong and she is grateful for her ability to remain bipedal. On PQRS: She remains pleasant, outgoing, stable. She has osteoarthritis; it involves multiple joints including both hips, knees and shoulders. She complains of pain in her hands as well. Blood pressure today is noted to be 135/88, heart rate 80, pulse is 66, respirations 20. We discussed her fall and talked about safe management. She is on no blood thinners. Dr. Puga treats her for hypertension. She is taking her medicines as ordered and I have reviewed all medicines as noted on the electronic medical record. She has reduced her use of oral hydromorphone and is taking only that when she needs to supplement her intrathecal pump. She is cautious about it. She is at moderate risk for addiction by the ORT with a score of 4. Functional assessment score is still high at 46. She smokes 8 cigarettes a day and has continued efforts to try and stop. She denies use of alcohol. IMPRESSION: 1. Chronic intractable pain with multi-joint arthritis, thoracolumbar scoliosis with spondylitic changes and mechanical back pain. 2. Management of intrathecal infusion pump with reprogramming session and refill. PROCEDURE: After informed consent, skin was prepped with ChloraPrep. A 22-gauge non-coring needle advanced in pump. Old medication removed and [facility] [address] [place] [address] PAIN MANAGEMENT CONSULTATION Name: ZEYNEP VELASCO KRISTINA Room #: REG CLI Payton.Emilia.#: [id number] Admission: 06/07/20 Attend Phys: Kal Gabriel MD Discharge: Date of : 59 Report #: [id number] discarded per protocol. Pump was then refilled with a combination of hydromorphone and bupivacaine and reprogramming session performed with an increase of 3.4% to roughly 6 mg a day of hydromorphone and bupivacaine. The programming information was checked and a copy given to the patient. She was discharged in good condition. A followup visit is planned in July. Electronic prescription for Lyrica was provided at discharge. I reviewed her prescription drug monitoring program with no unexpected entries. By: [id number] Kal Gabriel MD /nt
[2020-06-07 12:22] VITALS: BP 139/88
--- NOTE | 2020-06-07 12:30 | NUR ---
Pain Clinic Assessment: 1. History of Osteoarthritis: neelima hips and hands RT SHOULDER History of Rheumatoid Arthritis: Not Applicable 2. Height: 5 ft. 2 in. 157.5 cm. Weight: 134.6 lb. oz. 61.054 kg. Patient's BMI: 24.6 3. Vital Signs: BP: 139/88 Pulse: 66 Resp: 20 Temp: 02 Sat: 98 ECG Mon: 4. Pain Intensity: 7-8 5. Fall Risk: Dizziness: N Needs help standing or walking: Y Fallen in the last 3 months: Y Fall risk comments: USES CANE, FELL BEGINING OF MAY 21. Patient on Blood Thinner: None 7. History of Hypertension: Y 8. Opioid Therapy greater than 6 weeks: Y Opiate Contract Signed: 11/06/16 9. Risk Assessment Tool Provided: 4-mod 10. Functional Assessment Tool: 11. Recreational Drug Use: Never Drug Type: Tobacco Use: Current Every Day Smoker Tobacco Type: Cigarettes Amount or Packs/day: 8 CIGS DAY How Many Years: Alcohol Use: No Frequency: Quant:
== END | disposition home or self-care (01) ==
LOC: PAIN 07:07
PROVIDERS: ATTEND Anesthesiology Pain Medicine
DX: Z45.1 Encounter for adjustment and management of infusion pump (principal); G89.29 Other chronic pain; M54.9 Dorsalgia, unspecified; M41.85 Other forms of scoliosis, thoracolumbar region; I10 Essential (primary) hypertension; M19.90 Unspecified osteoarthritis, unspecified site; Z98.890 Other specified postprocedural states; Z79.899 Other long term (current) drug therapy; Z87.891 Personal history of nicotine dependence

== ENCOUNTER → 2020-07-30 | Outpatient (CLI) | payer OTHER ==
[~2020-07-30] VITALS: Ht 157.5 cm; Wt 57.2 kg
--- NOTE | ~2020-07-30 | HPC ---
[facility] [place] [address] PAIN MANAGEMENT CONSULTATION Name: ZEYNEP VELASCO Room #: REG PAULINESeth M.Emilia.#: [id number] Admission: 07/30/20 Attend Phys: Kal Gabriel MD Discharge: Date of : 59 Report #: [id number] THIS REPORT FOR: cc: Alek Barboza MD, Mark A. MD Morgan, Richard L. MD ~ CC: ALEK Gabriel DATE OF SERVICE: 07/30/2020 Followup visit for management of intrathecal infusion pump. The patient returns to pain clinic today to refill her intrathecal infusion pump. Her last refill was scheduled on 06/07/2020. She gets about 2 months between refills but little bit less. She is doing well. She needs no adjustments in her infusion. She is grateful for the pain relief that it provides and she very rarely has to take any additional pain medication. I did give her a bit of hydromorphone, which she used intermittently over the years, but the prescription provided on 04/12/2020 for 20 tablets has still got several pills in the bottle and she does not need another refill at this time. She takes Lyrica and I think that is also helpful. I have agreed to renew that prescription for her as well. She takes 100 mg 3 times daily and baclofen 10 mg q. 8 hours. Occasionally, uses Voltaren gel. PQRS review today is positive for chronic osteoarthritis with multiple joints and severe thoracolumbar scoliosis. She is on no blood thinners. She is under treatment for hypertension by Dr. Alek Moore. She takes her medications as ordered and I have reviewed all medications. She has completed an opioid risk tool and has a score of 4. We do not provide her with much medication. Her MME report suggests that she takes less than 10 MME per day on average. Continues to smoke, was given instructions on quitting today. Denies use of alcohol. IMPRESSION: 1. Chronic intractable back pain with severe thoracolumbar scoliosis and spondylitic changes. She also has multiple joint arthritis. 2. Management of intrathecal infusion pump with refill and reprogramming. PROCEDURE: Skin was prepped with ChloraPrep. Skin anesthetized and a 22-gauge non-coring needle advanced in the pump. Old medication removed and discarded per protocol. Pump was then refilled with a combination of hydromorphone and bupivacaine and reprogramming session was performed. This was reviewed by myself and nurse and copy was provided to the patient for discharge. [place] [address] PAIN MANAGEMENT CONSULTATION Name: ZEYNEP VELASCO KRISTINA [id number] Admission: 07/30/20 Attend Phys: Kal Gabriel MD Discharge: Date of : 59 Report #: [id number] Her next scheduled refill is in about 2 months. By: [id number] Kal Gabriel MD /lianna
[2020-07-30 13:05] VITALS: BP 143/81
--- NOTE | 2020-07-30 13:51 | NUR ---
Pain Clinic Assessment: 1. History of Osteoarthritis: neelima hips and hands RT SHOULDER History of Rheumatoid Arthritis: Not Applicable 2. Height: 5 ft. 2 in. 157.5 cm. Weight: 126.2 lb. oz. 57.244 kg. Patient's BMI: 23.1 3. Vital Signs: BP: 143/81 Pulse: 65 Resp: 14 Temp: 02 Sat: 100 ECG Mon: 4. Pain Intensity: 6 5. Fall Risk: Dizziness: N Needs help standing or walking: Y Fallen in the last 3 months: N Fall risk comments: USES CANE, FELL BEGINING OF MAY 6. Patient on Blood Thinner: None 7. History of Hypertension: Y 8. Opioid Therapy greater than 6 weeks: Y Opiate Contract Signed: 11/06/16 9. Risk Assessment Tool Provided: 4-mod 10. Functional Assessment Tool: 11. Recreational Drug Use: Never Drug Type: Tobacco Use: Current Every Day Smoker Tobacco Type: Amount or Packs/day: How Many Years: Alcohol Use: No Frequency: Quant:
== END | disposition home or self-care (01) ==
LOC: PAIN 07:00
PROVIDERS: ATTEND Anesthesiology Pain Medicine
DX: G89.29 Other chronic pain (principal); M41.85 Other forms of scoliosis, thoracolumbar region; M47.815 Spondylosis without myelopathy or radiculopathy, thoracolumbar region; J44.1 Chronic obstructive pulmonary disease with (acute) exacerbation; F17.210 Nicotine dependence, cigarettes, uncomplicated; Z79.899 Other long term (current) drug therapy

== ENCOUNTER → 2020-09-27 | Outpatient (CLI) | payer OTHER ==
[~2020-09-27] VITALS: Ht 157.5 cm; Wt 60.0 kg
[2020-09-27 09:37] VITALS: BP 118/64
== END | disposition home or self-care (01) ==
LOC: PAIN 06:51
PROVIDERS: ATTEND Anesthesiology Pain Medicine
DX: Z45.1 Encounter for adjustment and management of infusion pump (principal); G89.29 Other chronic pain; M41.85 Other forms of scoliosis, thoracolumbar region; M47.895 Other spondylosis, thoracolumbar region; M25.552 Pain in left hip; I10 Essential (primary) hypertension; M19.90 Unspecified osteoarthritis, unspecified site; F17.210 Nicotine dependence, cigarettes, uncomplicated; Z98.890 Other specified postprocedural states; Z79.899 Other long term (current) drug therapy; Z88.0 Allergy status to penicillin; Z88.8 Allergy status to other drugs, medicaments and biological substances

== ENCOUNTER → 2020-10-08 | Outpatient (CLI) | payer OTHER | LOC: CAT 12:13 | PROVIDERS: ATTEND Anesthesiology Pain Medicine | DX: M16.12 Unilateral primary osteoarthritis, left hip (principal) ==

== ENCOUNTER → 2020-11-22 | Outpatient (CLI) | payer OTHER ==
[~2020-11-22] VITALS: Ht 157.5 cm; Wt 56.7 kg
[2020-11-22 12:37] VITALS: BP 121/76
--- NOTE | 2020-11-22 12:43 | NUR ---
Pain Clinic Assessment: 1. History of Osteoarthritis: neelima hips and hands RT SHOULDER History of Rheumatoid Arthritis: Not Applicable 2. Height: 5 ft. 2 in. 157.5 cm. Weight: 125.0 lb. oz. 56.700 kg. Patient's BMI: 22.9 3. Vital Signs: BP: 121/76 Pulse: 60 Resp: 14 Temp: 02 Sat: 98 ECG Mon: 4. Pain Intensity: 6 5. Fall Risk: Dizziness: N Needs help standing or walking: Y Fallen in the last 3 months: N Fall risk comments: WALKER 6. Patient on Blood Thinner: None 7. History of Hypertension: Y 8. Opioid Therapy greater than 6 weeks: Y Opiate Contract Signed: 11/06/16 9. Risk Assessment Tool Provided: 4-mod 10. Functional Assessment Tool: 11. Recreational Drug Use: Never Drug Type: Tobacco Use: Current Every Day Smoker Tobacco Type: Amount or Packs/day: 1/2 PACK How Many Years: Alcohol Use: No Frequency: Quant:
== END | disposition home or self-care (01) ==
LOC: PAIN 06:46
PROVIDERS: ATTEND Anesthesiology Pain Medicine
DX: Z45.1 Encounter for adjustment and management of infusion pump (principal); G89.29 Other chronic pain; M41.80 Other forms of scoliosis, site unspecified; I10 Essential (primary) hypertension; M19.90 Unspecified osteoarthritis, unspecified site; F17.210 Nicotine dependence, cigarettes, uncomplicated; Z98.890 Other specified postprocedural states; Z79.899 Other long term (current) drug therapy; Z88.0 Allergy status to penicillin; Z88.8 Allergy status to other drugs, medicaments and biological substances

== ENCOUNTER → 2021-01-17 | Outpatient (CLI) | payer OTHER ==
[~2021-01-17] VITALS: Ht 147.3 cm; Wt 59.0 kg
[2021-01-17 12:29] VITALS: BP 104/71
--- NOTE | 2021-01-17 12:35 | NUR ---
Pain Clinic Assessment: 1. History of Osteoarthritis: neelima hips and hands RT SHOULDER History of Rheumatoid Arthritis: Not Applicable 2. Height: 4 ft. 10 in. 147.3 cm. Weight: 130.0 lb. oz. 58.968 kg. Patient's BMI: 27.2 3. Vital Signs: BP: 104/71 Pulse: 66 Resp: 16 Temp: 02 Sat: 95 ECG Mon: 4. Pain Intensity: 6.5 5. Fall Risk: Dizziness: N Needs help standing or walking: Y Fallen in the last 3 months: N Fall risk comments: WALKER 6. Patient on Blood Thinner: None 7. History of Hypertension: Y 8. Opioid Therapy greater than 6 weeks: Y Opiate Contract Signed: 11/06/16 9. Risk Assessment Tool Provided: 4-mod 10. Functional Assessment Tool: 11. Recreational Drug Use: Never Drug Type: Tobacco Use: Current Every Day Smoker Tobacco Type: Cigarettes Amount or Packs/day: 1/2 PACK How Many Years: 35 Alcohol Use: No Frequency: Quant:
== END | disposition home or self-care (01) ==
LOC: PAIN 06:52
PROVIDERS: ATTEND Anesthesiology Pain Medicine
DX: Z45.1 Encounter for adjustment and management of infusion pump (principal); G89.29 Other chronic pain; M54.9 Dorsalgia, unspecified; M41.9 Scoliosis, unspecified; I10 Essential (primary) hypertension; M19.90 Unspecified osteoarthritis, unspecified site; F17.210 Nicotine dependence, cigarettes, uncomplicated; Z98.890 Other specified postprocedural states; Z79.899 Other long term (current) drug therapy; Z79.891 Long term (current) use of opiate analgesic; Z88.0 Allergy status to penicillin; Z88.8 Allergy status to other drugs, medicaments and biological substances

== ENCOUNTER → 2021-03-18 | Outpatient (CLI) | payer OTHER ==
[~2021-03-18] VITALS: Ht 157.5 cm; Wt 58.2 kg
[~2021-03-18] MED LIST changes: +CLARITIN10 M3 PO
[2021-03-18 12:29] VITALS: BP 113/69
--- NOTE | 2021-03-18 12:47 | NUR ---
Pain Clinic Assessment: 1. History of Osteoarthritis: neelima hips and hands RT SHOULDER History of Rheumatoid Arthritis: Not Applicable 2. Height: 5 ft. 2 in. 157.5 cm. Weight: 128.4 lb. oz. 58.242 kg. Patient's BMI: 23.5 3. Vital Signs: BP: 113/69 Pulse: 60 Resp: 16 Temp: 02 Sat: 98 ECG Mon: 4. Pain Intensity: 6 TO 7 5. Fall Risk: Dizziness: N Needs help standing or walking: Y Fallen in the last 3 months: N Fall risk comments: WALKER 6. Patient on Blood Thinner: None 7. History of Hypertension: Y 8. Opioid Therapy greater than 6 weeks: Y Opiate Contract Signed: 11/06/16 9. Risk Assessment Tool Provided: 4-mod 10. Functional Assessment Tool: 11. Recreational Drug Use: Never Drug Type: Tobacco Use: Current Every Day Smoker Tobacco Type: Amount or Packs/day: 1/2 PK/D How Many Years: Alcohol Use: No Frequency: Quant:
== END | disposition home or self-care (01) ==
LOC: PAIN 12:01
PROVIDERS: ATTEND Anesthesiology Pain Medicine
DX: Z45.1 Encounter for adjustment and management of infusion pump (principal); G89.29 Other chronic pain; M41.86 Other forms of scoliosis, lumbar region; M12.819 Other specific arthropathies, not elsewhere classified, unspecified shoulder; I10 Essential (primary) hypertension; F17.210 Nicotine dependence, cigarettes, uncomplicated; Z79.891 Long term (current) use of opiate analgesic; Z98.890 Other specified postprocedural states; Z79.899 Other long term (current) drug therapy; Z88.0 Allergy status to penicillin; Z88.8 Allergy status to other drugs, medicaments and biological substances

== ENCOUNTER → 2021-05-16 | Outpatient (CLI) | payer OTHER ==
[~2021-05-16] VITALS: Ht 149.9 cm; Wt 52.2 kg
[2021-05-16 12:35] VITALS: BP 116/69
--- NOTE | 2021-05-16 12:43 | NUR ---
Pain Clinic Assessment: 1. History of Osteoarthritis: neelima hips and hands RT SHOULDER History of Rheumatoid Arthritis: Not Applicable 2. Height: 4 ft. 11 in. 149.9 cm. Weight: 115.0 lb. oz. 52.164 kg. Patient's BMI: 23.2 3. Vital Signs: BP: 116/69 Pulse: 60 Resp: 16 Temp: 02 Sat: 100 ECG Mon: 4. Pain Intensity: 7 5. Fall Risk: Dizziness: N Needs help standing or walking: N Fallen in the last 3 months: N Fall risk comments: WALKER 6. Patient on Blood Thinner: None 7. History of Hypertension: Y 8. Opioid Therapy greater than 6 weeks: Y Opiate Contract Signed: 11/06/16 9. Risk Assessment Tool Provided: 4-mod 10. Functional Assessment Tool: 11. Recreational Drug Use: Never Drug Type: Tobacco Use: Current Every Day Smoker Tobacco Type: Cigarettes Amount or Packs/day: 1/2 pack How Many Years: Alcohol Use: No Frequency: Quant:
== END | disposition home or self-care (01) ==
LOC: PAIN 09:56
PROVIDERS: ATTEND Anesthesiology Pain Medicine
DX: Z45.1 Encounter for adjustment and management of infusion pump (principal); G89.29 Other chronic pain; M41.86 Other forms of scoliosis, lumbar region; I10 Essential (primary) hypertension; M19.90 Unspecified osteoarthritis, unspecified site; F17.210 Nicotine dependence, cigarettes, uncomplicated; Z98.890 Other specified postprocedural states; Z79.899 Other long term (current) drug therapy; Z79.891 Long term (current) use of opiate analgesic; Z88.0 Allergy status to penicillin; Z88.6 Allergy status to analgesic agent; Z88.8 Allergy status to other drugs, medicaments and biological substances

== ENCOUNTER → 2021-07-11 | Outpatient (CLI) | payer OTHER ==
[~2021-07-11] VITALS: Ht 149.9 cm; Wt 54.8 kg
[2021-07-11 12:42] VITALS: BP 102/68
--- NOTE | 2021-07-11 12:44 | NUR ---
Pain Clinic Assessment: 1. History of Osteoarthritis: neelima hips and hands RT SHOULDER History of Rheumatoid Arthritis: Not Applicable 2. Height: 4 ft. 11 in. 149.9 cm. Weight: 120.8 lb. oz. 54.794 kg. Patient's BMI: 24.4 3. Vital Signs: BP: 102/68 Pulse: 63 Resp: 16 Temp: 02 Sat: 100 ECG Mon: 4. Pain Intensity: 7 5. Fall Risk: Dizziness: N Needs help standing or walking: N Fallen in the last 3 months: N Fall risk comments: WALKER 6. Patient on Blood Thinner: None 7. History of Hypertension: Y 8. Opioid Therapy greater than 6 weeks: Y Opiate Contract Signed: 11/06/16 9. Risk Assessment Tool Provided: 4-mod 10. Functional Assessment Tool: 11. Recreational Drug Use: Never Drug Type: Tobacco Use: Current Every Day Smoker Tobacco Type: Cigarettes Amount or Packs/day: 7-10 CIGGS How Many Years: Alcohol Use: No Frequency: Quant:
== END | disposition home or self-care (01) ==
LOC: PAIN 08:04
PROVIDERS: ATTEND Anesthesiology Pain Medicine
DX: Z45.1 Encounter for adjustment and management of infusion pump (principal); M54.5 Low back pain; M47.896 Other spondylosis, lumbar region; M41.86 Other forms of scoliosis, lumbar region; J44.9 Chronic obstructive pulmonary disease, unspecified; G89.29 Other chronic pain; F17.210 Nicotine dependence, cigarettes, uncomplicated; Z98.890 Other specified postprocedural states; Z79.899 Other long term (current) drug therapy; Z88.0 Allergy status to penicillin; Z88.8 Allergy status to other drugs, medicaments and biological substances

== ENCOUNTER → 2021-09-05 | Outpatient (CLI) | payer OTHER ==
[~2021-09-05] VITALS: Ht 149.9 cm; Wt 55.8 kg
[2021-09-05 11:38] VITALS: BP 112/67
--- NOTE | 2021-09-05 11:42 | NUR ---
Pain Clinic Assessment: 1. History of Osteoarthritis: neelima hips and hands RT SHOULDER History of Rheumatoid Arthritis: Not Applicable 2. Height: 4 ft. 11 in. 149.9 cm. Weight: 123.0 lb. oz. 55.792 kg. Patient's BMI: 24.8 3. Vital Signs: BP: 112/67 Pulse: 69 Resp: 16 Temp: 02 Sat: 98 ECG Mon: 4. Pain Intensity: 7 5. Fall Risk: Dizziness: N Needs help standing or walking: N Fallen in the last 3 months: N Fall risk comments: WALKER 6. Patient on Blood Thinner: None 7. History of Hypertension: Y 8. Opioid Therapy greater than 6 weeks: Y Opiate Contract Signed: 11/06/16 9. Risk Assessment Tool Provided: 4-mod 10. Functional Assessment Tool: 11. Recreational Drug Use: Never Drug Type: Tobacco Use: Current Every Day Smoker Tobacco Type: Cigarettes Amount or Packs/day: 1/2 D How Many Years: Alcohol Use: No Frequency: Quant:
== END | disposition home or self-care (01) ==
LOC: PAIN 07:01
PROVIDERS: ATTEND Anesthesiology Pain Medicine
DX: Z45.1 Encounter for adjustment and management of infusion pump (principal); G89.29 Other chronic pain; J44.1 Chronic obstructive pulmonary disease with (acute) exacerbation; I10 Essential (primary) hypertension; M19.90 Unspecified osteoarthritis, unspecified site; Z79.899 Other long term (current) drug therapy

== ENCOUNTER → 2021-10-31 | Outpatient (CLI) | payer OTHER ==
[~2021-10-31] VITALS: Ht 157.5 cm; Wt 55.6 kg
[2021-10-31 11:01] VITALS: BP 131/81
--- NOTE | 2021-10-31 11:18 | NUR ---
Pain Clinic Assessment: 1. History of Osteoarthritis: neelima hips and hands RT SHOULDER History of Rheumatoid Arthritis: Not Applicable 2. Height: 5 ft. 2 in. 157.5 cm. Weight: 122.6 lb. oz. 55.611 kg. Patient's BMI: 22.4 3. Vital Signs: BP: 131/81 Pulse: 59 Resp: 14 Temp: 02 Sat: 100 ECG Mon: 4. Pain Intensity: 7 5. Fall Risk: Dizziness: N Needs help standing or walking: N Fallen in the last 3 months: N Fall risk comments: WALKER 6. Patient on Blood Thinner: None 7. History of Hypertension: Y 8. Opioid Therapy greater than 6 weeks: Y Opiate Contract Signed: 11/06/16 9. Risk Assessment Tool Provided: 4-mod 10. Functional Assessment Tool: 11. Recreational Drug Use: Never Drug Type: Tobacco Use: Current Every Day Smoker Tobacco Type: Amount or Packs/day: How Many Years: Alcohol Use: No Frequency: Quant:
== END | disposition home or self-care (01) ==
LOC: PAIN 10:09
PROVIDERS: ATTEND Anesthesiology Pain Medicine
DX: Z45.1 Encounter for adjustment and management of infusion pump (principal); G89.29 Other chronic pain; M41.86 Other forms of scoliosis, lumbar region; M19.90 Unspecified osteoarthritis, unspecified site; J44.9 Chronic obstructive pulmonary disease, unspecified; F17.210 Nicotine dependence, cigarettes, uncomplicated; Z98.890 Other specified postprocedural states; Z79.899 Other long term (current) drug therapy; Z88.0 Allergy status to penicillin; Z88.8 Allergy status to other drugs, medicaments and biological substances

== ENCOUNTER → 2021-12-26 | Outpatient (CLI) | payer OTHER ==
[~2021-12-26] VITALS: Ht 157.5 cm; Wt 56.3 kg
[2021-12-26 12:41] VITALS: BP 113/71
--- NOTE | 2021-12-26 12:56 | NUR ---
Pain Clinic Assessment: 1. History of Osteoarthritis: neelima hips and hands RT SHOULDER History of Rheumatoid Arthritis: Not Applicable 2. Height: 5 ft. 2 in. 157.5 cm. Weight: 124.2 lb. oz. 56.337 kg. Patient's BMI: 22.7 3. Vital Signs: BP: 113/71 Pulse: 55 Resp: 14 Temp: 02 Sat: 100 ECG Mon: 4. Pain Intensity: 7 5. Fall Risk: Dizziness: N Needs help standing or walking: Y Fallen in the last 3 months: N Fall risk comments: WALKER 6. Patient on Blood Thinner: None 7. History of Hypertension: Y 8. Opioid Therapy greater than 6 weeks: Y Opiate Contract Signed: 11/06/16 9. Risk Assessment Tool Provided: 4-mod 10. Functional Assessment Tool: 11. Recreational Drug Use: Never Drug Type: Tobacco Use: Current Every Day Smoker Tobacco Type: Amount or Packs/day: How Many Years: Alcohol Use: No Frequency: Quant:
== END | disposition home or self-care (01) ==
LOC: PAIN 09:22
PROVIDERS: ATTEND Anesthesiology Pain Medicine
DX: Z45.1 Encounter for adjustment and management of infusion pump (principal); G89.29 Other chronic pain; M41.86 Other forms of scoliosis, lumbar region; M16.0 Bilateral primary osteoarthritis of hip; F32.9 Major depressive disorder, single episode, unspecified; M19.90 Unspecified osteoarthritis, unspecified site; F17.210 Nicotine dependence, cigarettes, uncomplicated; Z98.890 Other specified postprocedural states; Z79.899 Other long term (current) drug therapy; Z88.8 Allergy status to other drugs, medicaments and biological substances; Z88.0 Allergy status to penicillin